=== PATIENT | female | born 1930 | race Caucasian/White ===

== ENCOUNTER 2016-05-02 10:50 | Observation (INO) ==
--- NOTE | 2016-05-02 11:23 | Emergency Department Note ---
Disposition Clinical Impression: New onset a-fib Lower extremity edema Qualifiers: Laterality: bilateral Qualified Code(s): R60.0 - Localized edema Disposition: Admitted As Inpatient Condition: Good Referrals: NO,PCP [Primary Care Provider] - Forms: ED Satisfaction Letter Time of Disposition: 14:08 Extremity Problem HPI - General Chief complaint: ED Extremity Problem,Nontraumatic Stated complaint: swelling legs, feet x3 Day Time Seen by Provider: 05/02/16 11:12 Source: patient Limitations: no limitations Nursing Notes Reviewed: Yes Vital Signs Reviewed: Yes - History of Present Illness HPI Narrative: Patient is an 86-year-old female with medical history of anemia, high blood pressure, GERD. She presents today due to bilateral lower extremity swelling that has been present since Monday. She denies any chest pain, shortness of breath, nausea, vomiting, fevers, abdominal pain. She denies any pain in her lower extremities, she is up walking. Denies any redness. She has never had this occur in the past. Denies any history of CHF. She currently does not have a primary care physician and only sees the cancer center occasionally for iron infusions for anemia. She denies any previous cardiac diagnoses. Pain Scale: 2 - Related Data Home Medications Medication Instructions Recorded Confirmed Simvastatin [Zocor] 10 mg PO HS 06/22/15 06/22/15 Previous Rx's Medication Instructions Recorded Omeprazole [Prilosec] 40 mg PO DAILY #30 cap 04/06/15 Ergocalciferol (VITAMIN D2) 50,000 unit PO QWEEK #8 capsule 08/07/15 [Vitamin D2 (50,000 UNIT)] Folic Acid 1 mg PO DAILY #30 tablet 08/07/15 Omeprazole [PriLOSEC] 40 mg PO DAILY #30 capsule. 08/07/15 Labetalol [Trandate] 100 mg PO DAILY #30 tablet 09/17/15 Simvastatin [Zocor] 10 mg PO HS #30 tablet 10/19/15 Losartan Potassium [Cozaar] 50 mg PO BID #60 tab 01/04/16 Ferrous Sulfate 325 mg PO BIDWM #60 tablet 02/12/16 Ergocalciferol (VITAMIN D2) 50,000 unit PO QWEEK #4 capsule 03/04/16 [Drisdol (50,000 Unit)] Amlodipine Besylate 10 mg PO DAILY #30 tablet 04/11/16 Allergies Allergy/AdvReac Type Severity Reaction Status Date / Time No Known Allergies Allergy Verified 06/18/15 15:30 Constitutional: Denies: fever, chills Cardiovascular: Denies: chest pain, palpitations, dyspnea on exertion, orthopnea Respiratory: Denies: cough, dyspnea, wheezes Gastrointestinal: Denies: abdominal pain, nausea, vomiting, diarrhea Genitourinary: Denies: urgency, dysuria, frequency Musculoskeletal: Reports: other (Lower extremity edema). Denies: back pain, neck pain Integumentary: Denies: rash Neurological: Denies: headache, weakness, numbness, paresthesias Psychiatric: Denies: anxiety, depression Past Medical History - Past Medical History Attestation: Yes The following information was validated with the patient. Source: patient Medical history: Reports: hypertension - Social History Smoking Status: Never smoker Smokeless Tobacco Status: No Alcohol use: Reports: none Drug use: Reports: none Physical Exam - General Limitations: no limitations General appearance: alert, in no apparent distress - Head Head exam: atraumatic, normocephalic, normal inspection - Eye Eye exam: Present: normal appearance, PERRL, EOMI - ENT ENT exam: normal exam, normal oropharynx, mucous membranes moist - Neck Neck exam: Present: normal inspection, full ROM, trachea midline - Chest Chest inspection: Present: normal inspection, symmetric chest wall rise - Respiratory Respiratory exam: Present: normal lung sounds bilaterally - Cardiovascular Cardiovascular exam: Present: regular rate, irregular rhythm, normal heart sounds - Abdominal Exam Abdominal exam: Present: soft, Non-Tender. Absent: tenderness, distention, guarding, rebound, rigidity - Extremities Exam Extremities exam: Present: full ROM, normal capillary refill, pedal edema ( Bilateral lower extremity pedal edema, pitting; +2/4 bilateral posterior tibial pulses. ). Absent: tenderness - Neurological Exam Neurological exam: Present: alert, oriented X3 - Psychiatric Psychiatric exam: Present: normal affect, normal mood - Skin Skin exam: Present: warm, dry, intact, normal color Course Course Narrative: Vitals within normal limits. Patient is in atrial fibrillation. Denies any history of A. fib. Bilateral lower extremity pedal edema, pitting; +2/4 bilateral posterior tibial pulses. Otherwise, the rest of the physical exam was benign. We will perform cardiac workup, troponin, chest x-ray, EKG, albumin. EKG shows A. fib, rate controlled, no acute ST elevation or depression. 14:07 patient has an elevated troponin 0.05. She was given aspirin. Due to new onset A. fib, lower extremity edema, will admit patient for further workup. Patient currently is symptomatically no chest pain and no shortness of breath. Vital Signs Temperature 97.8 F 05/02/16 10:57 Pulse Rate 98 05/02/16 10:57 Respiratory Rate 16 05/02/16 10:57 Blood Pressure 129/52 05/02/16 10:57 O2 Sat by Pulse Oximetry 99 05/02/16 10:57 Temperature 97.8 F 05/02/16 10:57 Pulse Rate 81 05/02/16 13:21 Respiratory Rate 18 05/02/16 13:21 Blood Pressure 106/54 05/02/16 13:21 O2 Sat by Pulse Oximetry 96 05/02/16 13:21 Oxygen Delivery Oxygen Delivery Room Air Extremity Problem, Nontraumati - MDM Narrative Medical decision making narrative: I examined this patient and my medical decision-making was reviewed with the RACK CARRIER/PA/Advanced Practice Nurse/Resident Physician. I agree with the documented findings, disposition and treatment plan as described except to the extent set forth below. This patient with Dr. Pringle, I agree with his evaluation and management plan, I supervised the care of the patient throughout their stay today. Patient presents today with edema in her lower extremities are not last couple days. Assessment painful. She has never had COPD before never had any edema. She is 1+ edema on the dorsum of her feet or ankles. No edema in her thighs. Her lungs are clear. Send anemia in the past. She required transfusion she says that was over 6 months ago. She otherwise she feels fine. Jamey a brief workup on her and then reassess. She is in agreement with this plan. Vitals within normal limits. Patient is in atrial fibrillation. Denies any history of A. fib. Bilateral lower extremity pedal edema, pitting; +2/4 bilateral posterior tibial pulses. Otherwise, the rest of the physical exam was benign. We will perform cardiac workup, troponin, chest x-ray, EKG, albumin. EKG shows A. fib, rate controlled, no acute ST elevation or depression. 14:07 patient has an elevated troponin 0.05. She was given aspirin. Due to new onset A. fib, lower extremity edema, will admit patient for further workup. Patient currently is symptomatically no chest pain and no shortness of breath. Chest X-Ray 05/02/16 11:16 IMPRESSION: No evidence of acute disease. D/ / Ochoa Goss MD / Ochoa Goss MD Interpreting Provider: Ochoa Goss MD 1313 hrs.: Lab called inch patient has an elevated troponin 0.05. Patient's had no chest pain. She does not appear to be in heart failure on her chest x- ray. She has had the peripheral edema with an uncertain cause. Regarding her and bring her into the hospital. - Medical Records Medical records reviewed: Yes I reviewed the patient's medical records. - Lab Data Lab results reviewed: Yes I reviewed the patient's lab results. Result diagrams: 05/02/16 12:40 05/02/16 12:40 Lab Results 05/02/16 05/02/16 05/02/16 Range/Units 12:40 12:40 12:40 WBC 11.4 H (4.3-11.1) K/mcL RBC 3.16 L (3.82-4.97) M/mcL Hgb 9.8 L (11.5-15.4) g/dL Hct 30.3 L (35.3-44.9) % MCV 95.9 (83.0-100.0) fL MCH 31.0 (28.0-33.3) pg MCHC 32.3 (31.6-35.5) g/dL RDW 13.1 (11.5-14.5) % Plt Count 254 (140-400) K/mcL MPV 9.6 (9.4-12.4) fL Immature Gran % 0.5 (0-4) % Seg Neutrophils % 87.1 % Lymphocytes % 6.9 % Monocytes % 4.7 % Eosinophils % 0.5 % Basophils % 0.3 % Neutrophils # 10.0 H (1.6-8.9) K/mcL Lymphocytes # 0.8 (0.6-4.6) K/mcL Monocytes # 0.5 (0.0-1.3) K/mcL Eosinophils # 0.1 (0.0-0.6) K/mcL Basophils # 0.0 (0.0-0.2) K/mcL Sodium 141 (136-145) mEq/L Potassium 3.3 L (3.5-4.5) mEq/L Chloride 111 H (98-109) mEq/L Carbon Dioxide 22 (19-29) mEq/L BUN 26 H (7-20) mg/dL Creatinine 0.77 (0.57-1.11) mg/dL Est GFR ( Amer) > 60 (> 60) Est GFR (Non-Af Amer) > 60 (> 60) BUN/Creatinine Ratio 34 H (6-26) Glucose 94 (70-99) mg/dL Calculated Osmolality 297 (280-300) Calcium 7.6 L (8.6-10.8) mg/dL Troponin I 0.05 H* (0-0.03) ng/mL Albumin 1.6 L (3.5-5.0) g/dL - Radiology Data Radiology results reviewed: Yes I reviewed the patient's radiology results. Chest X-Ray 05/02/16 11:16 IMPRESSION: No evidence of acute disease. D/ / Ochoa Goss MD / Ochoa Goss MD Interpreting Provider: Ochoa Goss MD - EKG Data EKG attestation: Yes I reviewed and interpreted this EKG. EKG results narrative: May 0208/2016 11:16. A. fib. Rate 96. QTC 383. QRS 89. No acute ST elevation or depression. Previous EKG from 04/10/2012 shows normal sinus rhythm. Gus - Gus Situation: Demographics, MOA Background: Presenting Complaint, Relevant PMH, Meds, & Allergies Assessment: Course and respsone to treatment, Exam Concerns, Patient/Family Expectation, Pertinant Lab Results, Outstanding Labs S.B.ASarah Report Given to: Shon Weber Repor Time: 14:07
[2016-05-02 12:49] LABS: Basophils % 0.3 %; Eosinophils # 0.1 K/mcL (0.0-0.6); Eosinophils % 0.5 %; Hematocrit 30.3 % (35.3-44.9); Hemoglobin 9.8 g/dL (11.5-15.4); Immature Granulocytes % 0.5 % (0-4); Lymphocytes # 0.8 K/mcL (0.6-4.6); Lymphocytes % 6.9 %; Mean Corpuscular HGB Conc 32.3 g/dL (31.6-35.5); Mean Corpuscular Volume 95.9 fL (83.0-100.0); Mean Platelet Volume 9.6 fL (9.4-12.4); Monocytes # 0.5 K/mcL (0.0-1.3); Monocytes % 4.7 %; Platelet Count 254 K/mcL (140-400); Red Blood Count 3.16 M/mcL (3.82-4.97); Red Cell Distribution Width 13.1 % (11.5-14.5); Segmented Neutrophils % 87.1 %
[2016-05-02 13:02] LABS: BUN/Creatinine Ratio 34 (6-26); Blood Urea Nitrogen 26 mg/dL (7-20); Calcium 7.6 mg/dL (8.6-10.8); Carbon Dioxide 22 mEq/L (19-29); Chloride 111 mEq/L (98-109); Glucose 94 mg/dL (70-99); Osmolality,Calculated 297 (280-300); Potassium 3.3 mEq/L (3.5-4.5); Sodium 141 mEq/L (136-145); eGFR For African Americans > 60 (> 60); eGFR For Non-African Americans > 60 (> 60)
[2016-05-02 13:04] LABS: Albumin 1.6 g/dL (3.5-5.0)
[2016-05-02] MEDS ORDERED: Aspirin 81 MG TAB.CHEW PO ONE (13:14)
[2016-05-02] MEDS ORDERED: Naloxone 0.4 MG/ML INJ IVP PRN (16:27)
[2016-05-02] MEDS ORDERED: MOM Conc 10 ML UD.LIQ PO PRN (16:27)
[2016-05-02] MEDS ORDERED: Ondansetron 4 MG/2 ML VIAL IVP PRN (16:27)
[2016-05-02] MEDS ORDERED: Acetaminophen 325 MG TABLET PO PRN (16:27)
[2016-05-02] MEDS ORDERED: Mag Hydrox/Al Hydrox/Simeth 30 ML UDC PO PRN (16:27)
[2016-05-02] MEDS ORDERED: *HR* HYDROcodone/Acet 5/325 mg TABLET PO PRN (16:27)
--- NOTE | 2016-05-02 16:41 | Internal Med History&Physical ---
<Marina Gamboa - Last Filed: 05/02/16 18:01> Date of Encounter: 05/02/16 Time of Encounter: 16:00 Assessment and Plan (1) Lower extremity edema Current visit: Yes Status: Acute Pt has 2 month history of BLE edema, worse for the last 3 days when she started having difficulty walking. She denies any SOB, chest pain, palpitations, dizziness, or cough. Pt has no cardiac or renal history. Lungs are clear ant and post. Her albumin is significantly low at 1.6. BNP ordered Telemetry Echo urine pr/cr ratio LFT fluid restriction 1.5 L/day Qualifiers: Laterality: bilateral Qualified Code(s): R60.0 - Localized edema (2) Elevated troponin Current visit: Yes Status: Acute no chest pain. no shortness of breath. follow up serial troponins. ekg unremarkable. check echocardiogram. (3) Hypoalbuminemia Current visit: Yes Status: Acute Albumin 1.6 today. This certainly could be causing her peripheral edema, so we will repeat liver panel in the morning. Pt states that she eats well at home and cooks for herself, does not skip meals. (4) HTN (hypertension) Current visit: Yes Status: Chronic Blood pressure here today has been WNL, 129/52 during exam. Will monitor vital signs and continue home dose of losartan and decrease dose of labetalol. holding amlodipine. Qualifiers: Hypertension type: essential hypertension Qualified Code(s): I10 - Essential (primary) hypertension (5) Iron deficiency anemia Current visit: Yes Status: Chronic Hgb 9.8mg/dl today. Continue FeS04 home dose. CBC in a.m. Last iron studies done in late 2014, ordered for a.m. Monitor labs. Qualifiers: Iron deficiency anemia type: unspecified iron deficiency Qualified Code(s) : D50.9 - Iron deficiency anemia, unspecified Internal Medicine - H&P: HPI Chief complaint: BLE edema Admitted From: Home Plans for Post Hospital Care: Home History of present illness: Ms. Mederos is a 86 year old female who presents with history of GERD, CARLA, and HTN. Pt does not have a PCP and until the last few years, did not see one at all. She comes today for worsening pedal edema. She and her friends are not sure when it started, but possibly early February, and it became worse 3 days ago and she was having difficulty walking. She denies leg pain, chest pain, SOB , cough, n/v/d, palpitations, or HARDING. Today her troponin is 0.05ng/dl in the ED. Her EKG shows sinus arrhythmia. She does have a murmur, 2/6 heard at the left upper and lower sternal border. She has +3 pitting pedal edema to BLE. Lungs are clear ant and post. Past Med Surg Social Fam HX - Past Medical History Medical history: hypertension - Social History Smoking Status: Never smoker Smokeless Tobacco Status: No Alcohol use: none Drug use: none Internal Medicine - H&P: Meds Simvastatin [Zocor] 10 mg PO HS 06/22/15 [History] Folic Acid 1 mg PO DAILY #30 tablet 08/07/15 [Rx] Omeprazole [PriLOSEC] 40 mg PO DAILY #30 capsule. 08/07/15 [Rx] Losartan Potassium [Cozaar] 50 mg PO BID #60 tab 01/04/16 [Rx] Ferrous Sulfate 325 mg PO BIDWM #60 tablet 02/12/16 [Rx] Amlodipine Besylate 5 mg PO DAILY 05/02/16 [History] Cyanocobalamin (Vitamin B-12) [Vitamin B12] 1,000 mcg PO DAILY 05/02/16 [History ] Ergocalciferol (VITAMIN D2) [Vitamin D2 (50,000 UNIT)] 50,000 unit PO SA [History] Labetalol [Trandate] 100 mg PO BID 05/02/16 [History] Vitamin B Complex [B Complex] 1 tab PO DAILY 05/02/16 [History] Vitamin E 1,000 unit PO DAILY 05/02/16 [History] Allergies No Known Allergies Allergy (Verified 06/18/15 15:30) All Systems PM: A 10-system review of systems was performed and is negative for pertinent findings except as documented above in the HPI. - Constitutional Constitutional: no chills, no fatigue, no falls, no lethargy, no weakness - Cardiovascular Cardiovascular ROS IM: edema, no chest pain, no diaphoresis, no dyspnea, no dyspnea on exertion, no irregular heart rhythm, no lightheadedness, no palpitations, no paroxysmal nocturnal dyspnea, no syncope - Respiratory Respiratory: no cough, no wheezing, no pain on inspiration, no chest congestion - Gastrointestinal Gastrointestinal: no diarrhea, no heartburn, no nausea, no vomiting - Genitourinary Genitourinary: no dysuria, no urinary frequency, no urinary urgency - Musculoskeletal Musculoskeletal ROS IM: no muscle weakness - Constitutional Vitals: Temp Pulse Resp BP Pulse Ox 97.8 F 81 18 106/54 96 05/02/16 10:57 05/02/16 13:21 05/02/16 13:21 05/02/16 13:21 05/02/16 13:21 General appearance: Present: cooperative, A&O X 3, pleasant, no acute distress, answers questions appropriately - Eye Eye exam: Present: conjuntiva pink - ENT ENT exam: Present: mucous membranes moist - Neck Neck exam general surgery: Absent: lymphadenopathy, tenderness - Respiratory Respiratory exam: Present: CTAB. Absent: accessory muscle use, chest wall tenderness, decreased breath sounds, rales, respiratory distress, wheezes - Cardiovascular Cardiovascular exam: Present: irregular rhythm, +S1, +S2 - Expanded Cardiovascular Exam Location: Present: LUSB Intensity: 2/6 - GI/Abdominal GI/Abdominal exam: Present: normal bowel sounds, soft. Absent: tenderness - Extremities Exam Extremities exam: Present: pedal edema, warm, radial pulses palpable and symetrical. Absent: tenderness Additional comments: Pt with +3 pitting edema to BLE, mid tibia to toes. Pedal or post tibial pulses not palpable. - Neurological Exam Neurological exam: Present: alert, oriented X3, no focal deficits. Absent: facial droop, speech deficit Internal Med - H&P Results - Labs CBC & Chem 7: 05/02/16 12:40 05/02/16 12:40 - EKG Data Prior EKG available for review: yes When compared to previous EKG: there are significant changes Interpretation IM: other EKG comments: 05/02/16 16:55 EKG shows sinus arrhythmia. Tracy 93, GA int 123, QRS 93, QT 363, QTc 413 05/02/16 17:23 <Sheila Reinoso - Last Filed: 05/02/16 18:46> Date of Encounter: 05/02/16 Internal Medicine - H&P: HPI History of present illness: Ms. Mederos is a 86 year old female All Systems PM: A 10-system review of systems was performed and is negative for pertinent findings except as documented above in the HPI. - Constitutional Vitals: Temp Pulse Resp BP Pulse Ox 97.5 F L 112 16 145/76 96 05/02/16 18:05 05/02/16 18:05 05/02/16 18:05 05/02/16 18:05 05/02/16 18:05 Internal Med - H&P Results - Labs CBC & Chem 7: 05/02/16 12:40 05/02/16 12:40 - Attending Attestation I examined, reviewed all imaging, laboratory and diagnostic data. I agree with the documented findings, treatment, disposition of ANALI Marina Gamboa as described below. 86-year-old female with past medical history of hypertension and GERD who has not seen a doctor for many years. She comes because of worsening lower extremity edema for at least 2 months that has led her to have difficulty in walking. no falls. albumin 1.6. Exam reveals extremity edema up to the knees. Patient denies any shortness of breath, chest pain, chest x-ray negative. LE edema could be secondary to severe hypoalbuminemia. check urine Creatinine protein ratio, LFTs, echocardiogram. consult PT/OT.
--- NOTE | 2016-05-02 16:46 | Electrocardiograph Report ---
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
[2016-05-03 00:53] LABS: Basophils % 0.3 %; Eosinophils # 0.2 K/mcL (0.0-0.6); Eosinophils % 1.4 %; Hematocrit 25.9 % (35.3-44.9); Hemoglobin 8.4 g/dL (11.5-15.4); Immature Granulocytes % 0.5 % (0-4); Lymphocytes # 1.3 K/mcL (0.6-4.6); Lymphocytes % 11.1 %; Mean Corpuscular HGB Conc 32.4 g/dL (31.6-35.5); Mean Corpuscular Hemoglobin 31.1 pg (28.0-33.3); Mean Corpuscular Volume 95.9 fL (83.0-100.0); Monocytes # 0.7 K/mcL (0.0-1.3); Monocytes % 6.1 %; Neutrophils # 9.7 K/mcL (1.6-8.9); Platelet Count 244 K/mcL (140-400); Red Cell Distribution Width 13.2 % (11.5-14.5); Segmented Neutrophils % 80.6 %
[2016-05-03 01:01] LABS: INR 1.2; Prothrombin Time 13.1 Seconds (9.4-12.1)
[2016-05-03 01:11] LABS: Albumin/Globulin Ratio 0.6 (1.1-2.2); Bilirubin,Direct 0.2 mg/dL (0.0-0.5); Bilirubin,Indirect 0.3 mg/dL (0.0-1.2); Bilirubin,Total 0.5 mg/dL (0.2-1.2); Globulin 2.5 g/dL (2.4-3.5)
[2016-05-03 01:12] LABS: % Iron Saturation 39 % (15-50); Albumin 1.5 g/dL (3.5-5.0); Iron 27 mcg/dL (50-170); Transferrin 49 mg/dL (180-382)
[2016-05-03] MEDS ORDERED: amLODIPine 5 MG TABLET PO SCH (09:00)
[2016-05-03] MEDS: Cyanocobalamin (B-12) 1,000 MCG TABLET PO SCH (09:32)
[2016-05-03] MEDS: Folic Acid 1 MG TABLET PO SCH (09:32)
--- NOTE | 2016-05-03 11:31 | ECHO - Doppler Report ---
Echocardiogram Name: Betina Mederos Date of Study: 05/03/2016 Date: 1930 Ht: 66.0 in Medical Record#: [id number] Age: 86 Wt: 140.0 lb Gender: Female BSA: 1.72 Order #: [id number] Location: [facility] IP Room #: 2A43 Reading Physician: Alisha Her DO Environmental Program Manager: Victorino Viramontes RN Ordering Physician: Sheila Reinoso MD Primary Physician: None Indications: Murmur Impressions: LVEF 60-65%. Normal left ventricular size and systolic function. Indeterminate diastolic function. Normal right ventricular size and function. Visually, degree of aortic stenosis appears severe. By Doppler, there is moderate to severe aortic stenosis. Mild mitral regurgitation. Mild tricuspid regurgitation. Mild pulmonary hypertension. Left Ventricular Wall Motion: Rest Echo Findings All wall segments showed normal motion. Findings: Study Quality * Technically adequate exam. ECG Findings * Unclear underlying rhythm. Possibly sinus with arrhythmia. Left Ventricle * Indeterminate diastolic function. * LVEF 60-65%. * Normal LV chamber size, wall thickness and function. Mitral Valve * Normal mitral valve structure. * No mitral stenosis. * Mild mitral annular calcification * Mild mitral regurgitation. Tricuspid Valve * Mild tricuspid regurgitation. * Normal tricuspid valve structure. * Estimated RA pressure is 3 mmHg. * Estimated RVSP is 44 mmHg. * Mild pulmonary hypertension. Pulmonic Valve * Pulmonic valve is not well visualized. * No pulmonic stenosis. * Trace pulmonic regurgitation. Pulmonary Artery * Pulmonary artery not well visualized. Aortic Valve * Aortic valve not well visualized. * No aortic regurgitation. * Moderate-severe aortic stenosis. PV 3.2m/s, MG 25 mmHg, DI 0.32, LA 1.0cm2 Right Ventricle * Normal right ventricular structure and function. Right Atrium * Normal right atrial size. Left Atrium * Mildly dilated left atrium. Interatrial Septum * No evidence of PFO by color Doppler. IVC * Normal IVC dimensions and inspiratory collapse. Pericardium * There is no pericardial effusion present. Aorta * Normally sized aortic root. History Hypertension Hypercholesteremia Family History of CAD Valvular Disease 04/11/2012 a Previous Echo was performed. Measurements: BP: 128/ 65 2D Normal Values RVIDd: 3.00 cm <2.7 cm IVSd: 1.20 cm 0.6 - 1.0 cm LVIDd: 4.00 cm 3.7 - 5.6 cm LVPWd: 1.20 cm 0.6 - 1.1 cm LVIDs: 2.90 cm 1.5 - 3.6 cm LA: 3.40 cm 2.0 - 4.0cm %FS: 27.50 cm >25 % LVOT Diam: 2.00 cm LA volume: 51 Mitral Valve Peak E:1.18 m/sec Peak E' Lat Aneesh:8.19 cm/s Peak E' Med Aneesh:7.7 cm/s E/E' Lat Ratio:14.4 E/E' Med Ratio:15.3 LVOT Peak Aneesh:1.12 m/sec Mean Aneesh:.69 m/sec Peak Grad:5.00 mmHg Mean Grad:2.00 mmHg Aortic Valve Peak Aneesh:3.80 m/sec Mean Aneesh:2.66 m/sec Peak Grad:58.00 mmHg Mean Grad:32.00 mmHg Valve Area:.91 cm2 Tricuspid Valve TV Regurg Peak Grad: 41.00mmHg TV Regurg Peak Aneesh: 3.20m/sec Updated by Alisha Her on 05/03/2016 11:16:36 AM electronically signed on 05/03/2016 11:25:23 AM with status of Final Wall Motion Reyez: 1=Normal, 2=Hypokinesis, 3=Akinesis, 4=Dyskinesis, 5=Aneurysmal, 6=Hyperkinetic, X=Not Visualized (Blank)=Missing
--- NOTE | 2016-05-03 14:46 | Cardiology Consult Note ---
Date of Encounter: 05/03/16 Time of Encounter: 14:44 Assessment and Plan (1) Elevated troponin Current Visit: Yes Status: Acute - adynamic troponin peak 0.05 - patient is asymptomatic, denies chest pain, shortness of breath, lightheadedness, syncope - EKG is sinus rhythm, shows wandering pacemaker with different p waves which are present, this is not atrial fibrillation - ECHO 05/03/16 - reveals EF 60-65% with normal systolic function, indeterminate diastolic dysfunction, SEVERE aortic visually but moderate to severe on doppler, mild MR, mild TR, and mild pulm hypertension (2) Severe calcific aortic stenosis Current Visit: Yes Status: Acute - patient is DNRCC - denies any complaints of chest pain, shortness of breath, or syncope - systolic murmur - ECHO 05/03/16 - reveals EF 60-65% with normal systolic function, indeterminate diastolic dysfunction, SEVERE aortic visually but moderate to severe on doppler, mild MR, mild TR, and mild pulm hypertension - known calcified aortic stenosis on prior echocardiogram since 2012 - consideration for possible TAVR, however, after discussion with patient she appeared to be adamant against any surgery - if she were to change her mind heart catheterization would need to be performed - otherwise nothing emergent needs done, possible outpatient management and likely follow up in clinic (3) Lower extremity edema Current Visit: Yes Status: Acute - history of 2 month lower extremity edema, worse past several days - BNP 182 - strict I&Os, fluid restriction, and possible diuresis - denies history of blood clots or smoking, likely not DVT Qualifiers: Laterality: bilateral Qualified Code(s): R60.0 - Localized edema Discussion w patient/family: The assessment and plan as outlined above was discussed with the patient and/or family members who expressed understanding and agreement. All questions were answered. Thank you for involving us in the care of your patient. Please call with any questions. History of Present Illness Consult date: 05/03/16 Requesting physician: Ange Castellanos Consult reason: mod-severe aortic stenosis Chief complaint: peripheral edema History of present illness: Ms. Mederos is a 86 year old female with history of HTN and known aortic stenosis presents to the ED for leg swelling. Cardiology consulted for severe aortic stenosis on recent echocardiogram. Complains of leg swelling worse over the past several days, first noticed 2 months ago. Denies chest pain, shortness of breath, lightheadedness, syncope, headache, or cough. Denies any history of cardiac ischemic disease or arrhythmia. Only concern for peripheral edema. No history of lung disease. Denies history of blood clots, recent surgeries, or long distance travel. Important CV studies: - ECHO 05/03/16 - EF 60-65% with normal systolic function, indeterminate diastolic dysfunction, SEVERE aortic visually but moderate to severe on doppler, mild MR, mild TR, and mild pulm hypertension - last ECHO 04/12/12 - EF 60% with mild diastolic dysfunction and moderate aortic stenosis with moderately calcified aortic valve with Vmax 2.9 m/s and gradient 20 mmHg Past Med Surg Social Fam HX - Past Medical History Medical history: hypertension - Past Surgical History Surgical History: hysterectomy - Social History Smoking Status: Never smoker Smokeless Tobacco Status: No Alcohol use: none Drug use: none Medications and Allergies Simvastatin [Zocor] 10 mg PO HS 06/22/15 [History] Folic Acid 1 mg PO DAILY #30 tablet 08/07/15 [Rx] Omeprazole [PriLOSEC] 40 mg PO DAILY #30 capsule. 08/07/15 [Rx] Losartan Potassium [Cozaar] 50 mg PO BID #60 tab 01/04/16 [Rx] Ferrous Sulfate 325 mg PO BIDWM #60 tablet 02/12/16 [Rx] Amlodipine Besylate 5 mg PO DAILY 05/02/16 [History] Cyanocobalamin (Vitamin B-12) [Vitamin B12] 1,000 mcg PO DAILY 05/02/16 [History ] Ergocalciferol (VITAMIN D2) [Vitamin D2 (50,000 UNIT)] 50,000 unit PO SA [History] Labetalol [Trandate] 100 mg PO BID 05/02/16 [History] Vitamin B Complex [B Complex] 1 tab PO DAILY 05/02/16 [History] Vitamin E 1,000 unit PO DAILY 05/02/16 [History] Allergies No Known Allergies Allergy (Verified 06/18/15 15:30) All Systems Review: A 10-system review of systems was performed and is negative for pertinent findings except as documented above in the HPI. - Constitutional Constitutional: no fever(s), no frequent falls, no weakness - Cardiovascular Cardiovascular: as per HPI, leg edema, no chest pain at rest, no chest pain with exertion, no dyspnea at rest, no dyspnea on exertion, no irregular heart rhythm, no lightheadedness, no orthopnea, no palpitations, no syncope - Respiratory Respiratory: no cough, no dyspnea - Musculoskeletal Musculoskeletal: no abnormal gait, no back pain - Neurological Neurological: no dizziness, no focal weakness, no syncope Physical Examination Vital Signs, Last 4 Hours Temp Pulse Resp BP Pulse Ox 05/03/16 11:50 109 16 109/63 94 L 05/03/16 11:29 97.3 F L 109 16 109/63 94 L General: Conversant, No Apparent Distress HEENT: Atraumatic, Normocephaly, Mucus Membranes Moist Neck: No JVD, Normal carotid pulses Cardiac: Reg Rate and Rhythm, Normal S1 and S2, Other (systolic crescendo murmur ) Lungs: Normal Breath Sounds, No Wheeze, Rales, Rhonchi Neuro: Alert and responsive, No focal deficits noted Abdomen: Soft, Non-Tender Skin: No rashes noted on visualized skin Musculoskeletal: No Chest Wall Tenderness Extremities: No Clubbing, No Cyanosis, Normal Pulses, Other (+1 bilateral pitting edema) Results 05/03/16 00:19 05/02/16 12:40 Lab Results 05/02/16 05/02/16 05/03/16 18:25 18:25 00:19 WBC Hgb Hct Plt Count INR 1.2 Total Bilirubin AST ALT Alkaline Phosphatase Troponin I 0.03 B-Natriuretic Peptide 182 H 05/03/16 05/03/16 05/03/16 00:19 00:19 00:19 WBC 12.0 H Hgb 8.4 L Hct 25.9 L Plt Count 244 INR Total Bilirubin 0.5 AST 13 ALT 17 Alkaline Phosphatase 132 H Troponin I 0.04 H* B-Natriuretic Peptide - Imaging and Cardiology Echo: report reviewed - EKG Interpretation EKG results cardiology: personally reviewed, sinus rhythm Consult Discharge Plan - Plan Referrals: NO,PCP [Primary Care Provider] -
--- NOTE | 2016-05-03 15:17 | Electrocardiograph Report ---
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
--- NOTE | 2016-05-03 17:09 | Internal Med Progress Note ---
Date of Encounter: 05/03/16 Time of Encounter: 17:07 - Assessment and plan (1) Elevated troponin Current Visit: Yes Status: Acute Assessment and plan: as per cardiology, adynamic troponin peak 0.05 - patient is asymptomatic, denies chest pain, shortness of breath, lightheadedness, syncope - EKG is sinus rhythm, shows wandering pacemaker with different p waves which are present, this is not atrial fibrillation - ECHO 05/03/16 - reveals EF 60-65% with normal systolic function, indeterminate diastolic dysfunction, SEVERE aortic visually but moderate to severe on doppler, mild MR, mild TR, and mild pulm hypertension no further intervention. (2) Severe calcific aortic stenosis Current Visit: Yes Status: Acute Assessment and plan: - denies any complaints of chest pain, shortness of breath, or syncope - systolic murmur - ECHO 05/03/16 - reveals EF 60-65% with normal systolic function, indeterminate diastolic dysfunction, SEVERE aortic visually but moderate to severe on doppler, mild MR, mild TR, and mild pulm hypertension - known calcified aortic stenosis on prior echocardiogram since 2012 - consideration for possible TAVR, however, after discussion with patient she appeared to be adamant against any surgery As per cardiology, if she were to change her mind heart catheterization would need to be performed - otherwise nothing emergent needs done, possible outpatient management and likely follow up in clinic she says her lower leg swelling has improved, she received no lasix, amlod has been held. will continue to monitor (3) HTN (hypertension) Current Visit: Yes Status: Chronic Assessment and plan: BP stable , will continue her home meds Qualifiers: Hypertension type: essential hypertension Qualified Code(s): I10 - Essential (primary) hypertension (4) Iron deficiency anemia Current Visit: Yes Status: Chronic Assessment and plan: she has baseline CARLA. she was seen by hematology and has received iron transfusions in the past and currently takes oral iron. her Hb is at baselline she denies any hematemesis or sedrick will contineu bhaskar iron supplements repeat iron panel shows Tsat of 39, whereas iron level is still low. Qualifiers: Iron deficiency anemia type: unspecified iron deficiency Qualified Code(s) : D50.9 - Iron deficiency anemia, unspecified - Subjective Interval history: seen at the bedside, denies any complaints. reports that she came in for leg swelling and has mild HARDING. denies any chest pain or cough. - Constitutional Vitals: Temp Pulse Resp BP Pulse Ox 98 F 106 16 127/70 93 L 05/03/16 16:11 05/03/16 16:11 05/03/16 16:11 05/03/16 16:11 05/03/16 16:11 General appearance: Present: cooperative, A&O X 3, pleasant, no acute distress, answers questions appropriately Exam: General: Conversant, No Apparent Distress HEENT: Atraumatic, Normocephaly, Mucus Membranes Moist Neck: No JVD, Normal carotid pulses Cardiac: Reg Rate and Rhythm, Normal S1 and S2, Other (systolic crescendo murmur ) Lungs: Normal Breath Sounds, No Wheeze, Rales, Rhonchi Neuro: Alert and responsive, No focal deficits noted Abdomen: Soft, Non-Tender Skin: No rashes noted on visualized skin Musculoskeletal: No Chest Wall Tenderness Extremities: No Clubbing, No Cyanosis, Normal Pulses, Other (+1 bilateral pitting edema) Internal Medicine: Result - Labs CBC & Chem 7: 05/03/16 00:19 05/02/16 12:40 Labs: Short CBC 05/03/16 Range/Units 00:19 WBC 12.0 H (4.3-11.1) K/mcL Hgb 8.4 L (11.5-15.4) g/dL Hct 25.9 L (35.3-44.9) % Plt Count 244 (140-400) K/mcL Neutrophils # 9.7 H (1.6-8.9) K/mcL Cardiac Enzymes 05/02/16 05/03/16 Range/Units 18:25 00:19 Troponin I 0.03 0.04 H* (0-0.03) ng/mL Liver Function 05/03/16 Range/Units 00:19 Total Bilirubin 0.5 (0.2-1.2) mg/dL Direct Bilirubin 0.2 (0.0-0.5) mg/dL AST 13 (5-34) Units/L ALT 17 (0-55) Units/L Alkaline Phosphatase 132 H (38-126) Units/L Albumin 1.5 L (3.5-5.0) g/dL - ABG Interpretation ABG results: PT/INR, D-dimer PT 13.1 Seconds (9.4-12.1) H 05/03/16 00:19 Consult Discharge Plan - Plan Referrals: NO,PCP [Primary Care Provider] -
[2016-05-04 05:23] LABS: Basophils % 0.2 %; Eosinophils # 0.1 K/mcL (0.0-0.6); Eosinophils % 1.3 %; Hematocrit 26.7 % (35.3-44.9); Hemoglobin 8.5 g/dL (11.5-15.4); Immature Granulocytes % 0.6 % (0-4); Lymphocytes # 1.3 K/mcL (0.6-4.6); Mean Corpuscular HGB Conc 31.8 g/dL (31.6-35.5); Mean Corpuscular Hemoglobin 30.4 pg (28.0-33.3); Mean Corpuscular Volume 95.4 fL (83.0-100.0); Mean Platelet Volume 9.9 fL (9.4-12.4); Monocytes # 0.6 K/mcL (0.0-1.3); Neutrophils # 7.9 K/mcL (1.6-8.9); Platelet Count 259 K/mcL (140-400); Red Cell Distribution Width 13.2 % (11.5-14.5); Segmented Neutrophils % 78.9 %
[2016-05-04 05:35] LABS: BUN/Creatinine Ratio 40 (6-26); Blood Urea Nitrogen 27 mg/dL (7-20); Calcium 7.4 mg/dL (8.6-10.8); Carbon Dioxide 21 mEq/L (19-29); Chloride 114 mEq/L (98-109); Glucose 91 mg/dL (70-99); Osmolality,Calculated 299 (280-300); Potassium 3.3 mEq/L (3.5-4.5); Sodium 142 mEq/L (136-145); eGFR For African Americans > 60 (> 60); eGFR For Non-African Americans > 60 (> 60)
[2016-05-04] MEDS ORDERED: Calcium Gluconate 1,000 MG in D5% in Water 100 ML IVPB ONE (08:45)
[2016-05-04] MEDS: Cyanocobalamin (B-12) 1,000 MCG TABLET PO SCH (08:52)
[2016-05-04] MEDS: Folic Acid 1 MG TABLET PO SCH (08:53)
--- NOTE | 2016-05-04 09:27 | Cardiology Progress Note ---
Date of Encounter: 05/04/16 Time of Encounter: 09:27 Assessment and Plan (1) Severe calcific aortic stenosis Current Visit: Yes Status: Acute - patient is DNRCC - systolic murmur - ECHO 05/03/16 - reveals EF 60-65% with normal systolic function, indeterminate diastolic dysfunction, SEVERE aortic visually but moderate to severe on doppler, mild MR, mild TR, and mild pulm hypertension - known calcified aortic stenosis on prior echocardiogram since 2012 - consideration for possible TAVR, however, after discussion with patient she does not wish to pursue at this time - patient remains asymptomatic even on exertion - will follow up in our cardiology clinic in a few weeks, appointment scheduled Cardiology will sign off at this time. Thank you for involving us in her care. Please call with further questions. (2) Elevated troponin Current Visit: Yes Status: Acute - adynamic troponin peak 0.05 - patient is asymptomatic, denies chest pain, shortness of breath, lightheadedness, syncope - EKG is sinus rhythm, shows wandering pacemaker with different p waves which are present, this is not atrial fibrillation - ECHO 05/03/16 - reveals EF 60-65% with normal systolic function, indeterminate diastolic dysfunction, SEVERE aortic visually but moderate to severe on doppler, mild MR, mild TR, and mild pulm hypertension (3) Lower extremity edema Current Visit: Yes Status: Acute - improving Qualifiers: Laterality: bilateral Qualified Code(s): R60.0 - Localized edema Discussion w patient/family: The assessment and plan as outlined above was discussed with the patient and/or family members who expressed understanding and agreement. All questions were answered. Thank you for involving us in the care of your patient. Please call with any questions. Subjective Principal diagnosis: leg edema Interval history: Patient seen and examined at bedside. No complaints at this time. Denies any chest pain, shortness of breath, lightheadedness, palpitations, or syncope. Edema improving. She has been up and walking with assistance, no issues. Readdressed options for possible valve replacement such as TAVR, she does not wish to pursue at this time. Objective Vital Signs, Last 4 Hours Temp Pulse Resp BP Pulse Ox 05/04/16 06:54 98.3 F 84 17 113/68 94 L General: Conversant, No Apparent Distress HEENT: Atraumatic, Normocephaly, Mucus Membranes Moist Neck: No JVD, Normal carotid pulses Cardiac: Reg Rate and Rhythm, Normal S1 and S2, Other (systolic crescendo murmur ) Lungs: Normal Breath Sounds, No Wheeze, Rales, Rhonchi Neuro: Alert and responsive, No focal deficits noted Abdomen: Soft, Non-Tender Skin: No rashes noted on visualized skin Musculoskeletal: No Chest Wall Tenderness Extremities: No Clubbing, No Cyanosis, Normal Pulses, Other (+1 bilateral pitting edema) Results 05/04/16 04:38 05/04/16 04:38 Lab Results 05/04/16 05/04/16 04:38 04:38 WBC 10.0 Hgb 8.5 L Hct 26.7 L Plt Count 259 Sodium 142 Potassium 3.3 L Chloride 114 H Carbon Dioxide 21 BUN 27 H Creatinine 0.68 Glucose 91 Calcium 7.4 L Consult Discharge Plan - Plan Referrals: NO,PCP [Primary Care Provider] -
--- NOTE | 2016-05-04 13:09 | Discharge Summary ---
Date of Encounter: 05/04/16 Time of Encounter: 13:06 - Discharge Diagnosis (1) Elevated troponin Priority: Primary Status: Acute (2) Severe calcific aortic stenosis Priority: Primary Status: Acute (3) HTN (hypertension) Priority: Primary Status: Chronic Qualifiers: Hypertension type: essential hypertension Qualified Code(s): I10 - Essential (primary) hypertension (4) Iron deficiency anemia Priority: Secondary Status: Chronic Qualifiers: Iron deficiency anemia type: unspecified iron deficiency Qualified Code(s) : D50.9 - Iron deficiency anemia, unspecified - Discharge Medications Home Medications: Simvastatin [Zocor] 10 mg PO HS 06/22/15 [History] Folic Acid 1 mg PO DAILY #30 tablet 08/07/15 [Rx] Omeprazole [PriLOSEC] 40 mg PO DAILY #30 capsule.dr 08/07/15 [Rx] Losartan Potassium [Cozaar] 50 mg PO BID #60 tab 01/04/16 [Rx] Ferrous Sulfate 325 mg PO BIDWM #60 tablet 02/12/16 [Rx] Cyanocobalamin (Vitamin B-12) [Vitamin B12] 1,000 mcg PO DAILY 05/02/16 [History ] Ergocalciferol (VITAMIN D2) [Vitamin D2 (50,000 UNIT)] 50,000 unit PO SA [History] Labetalol [Trandate] 100 mg PO BID 05/02/16 [History] Vitamin B Complex [B Complex] 1 tab PO DAILY 05/02/16 [History] Vitamin E 1,000 unit PO DAILY 05/02/16 [History] Allergies/Adverse Reactions: Allergies No Known Allergies Allergy (Verified 06/18/15 15:30) Date of admission: 05/02/16 16:25 Primary care physician: PCP NO Consults: 05/02/16 17:36 Consult to Occupational Therapy [CONS] Routine Comment: Evaluate, develop and implement POC Consult to Physical Therapy [CONS] Routine Comment: Evaluate, develop and implement POC 05/02/16 18:00 Consult to Nutrition [CONS] Routine Comment: Consulting Provider: NUTRITION Reason for Dietary Consult: MST Score Consult to Front Of House Manager [CONS] Routine Reason for SW Consult: possible ecf 05/03/16 12:19 Consult to Cardiology [CONS] Routine Comment: Consulting Provider: [facility] Reason for Consult: please evlauate for moderate to severe who presented with HARDING. thank you Call Completed: Yes Discharging clinician: Ange Castellanos Anticipated date of discharge: 05/04/16 - Patient Status Disposition: Home, Self-Care Condition: Fair Functional capacity at discharge: independent ambulation Overall status at discharge: patient is back to baseline - Discharge Instructions Instructions: Atrial Fibrillation (DC), Chronic Hypertension (DC), Anemia (GEN) Follow Up With: Alejandro Cole MD [Partnered Physician] - (Please call [facility] when you are ready to schedule your appointment. Thank you!) Alley Barr CUTTER TENDER [Advanced Practice Nurse] - 05/16/16 9:00 am (If you decide to cancel this appointment please call and cancel 24hrs in advance at . You will receive a nre patient packet in the mail to be filled out.) - Diet and Activity Activity: resume usual activities as tolerated Interval History: Ms. Mederos is a 86 year old female with history of HTN and known aortic stenosis presents to the ED for leg swelling. Cardiology consulted for severe aortic stenosis on recent echocardiogram. Complains of leg swelling worse over the past several days, first noticed 2 months ago. Denies chest pain, shortness of breath, lightheadedness, syncope, headache, or cough. Denies any history of cardiac ischemic disease or arrhythmia. Only concern for peripheral edema. No history of lung disease. Denies history of blood clots, recent surgeries, or long distance travel. Important CV studies: - ECHO 05/03/16 - EF 60-65% with normal systolic function, indeterminate diastolic dysfunction, SEVERE aortic visually but moderate to severe on doppler, mild MR, mild TR, and mild pulm hypertension - last ECHO 04/12/12 - EF 60% with mild diastolic dysfunction and moderate aortic stenosis with moderately calcified aortic valve with Vmax 2.9 m/s and gradient 20 mmHg Hospital course: cardiology was caonsulted for mod- severe on ECHO. patient is DNRCC - denies any complaints of chest pain, shortness of breath, or syncope - systolic murmur - ECHO 05/03/16 - reveals EF 60-65% with normal systolic function, indeterminate diastolic dysfunction, SEVERE aortic visually but moderate to severe on doppler, mild MR, mild TR, and mild pulm hypertension - known calcified aortic stenosis on prior echocardiogram since 2012 - consideration for possible TAVR, however, after discussion with patient she appeared to be adamant against any surgery adynamic troponin peak 0.05 - patient is asymptomatic, denies chest pain, shortness of breath, lightheadedness, syncope as per cardio she can follow for outpatient management and likely follow up in clinic. given her concern of generalized weakness , PT /OT was consulted , yaya it was recommended that she has no needs at this time and she is being dc in stable condition to home. she will be given referral to see cardio as OP for follow up. Time spent discussing smoking cessation with patient: more than 10 minutes - Time Spent with Patient Total time spent providing and/or coordinating discharge services: Greater than 30 minutes - Constitutional Vitals: Temp Pulse Resp BP Pulse Ox 98.1 F 83 16 122/63 98 05/04/16 11:30 05/04/16 11:30 05/04/16 11:30 05/04/16 11:30 05/04/16 11:30 General appearance: Present: cooperative, A&O X 3, pleasant, no acute distress, answers questions appropriately Exam: General: Conversant Cardiac: Other (irregularly irregular) Lungs: b/l clear, no added sounds Neuro: Alert and responsive Abdomen: Soft Skin: No rashes noted on visualized skin Musculoskeletal: No Chest Wall Tenderness Extremities: No Edema, Normal Pulses
[2016-05-04 15:52] VITALS: BP 136/66
== END 2016-05-04 17:26 | disposition home or self-care (01) ==
LOC: EMEROO 10:50 → 2ANU 10:50 → SUATTDRO 16:25 → 2ANU 17:26
PROVIDERS: ADMIT Internal Medicine; ATTEND Internal Medicine Endocrinology, Diabetes & Metabolism

== ENCOUNTER 2017-06-29 15:53 | Inpatient (IN) ==
[2017-06-29 16:58] LABS: Eosinophils % 0.5 %
[2017-06-29 17:00] LABS: Basophils % 0.3 %; Eosinophils # 0.1 K/mcL (0.0-0.6); Hematocrit 20.3 % (35.3-44.9); Immature Granulocytes % 0.5 % (0-4); Lymphocytes # 0.8 K/mcL (0.6-4.6); Lymphocytes % 7.3 %; Mean Corpuscular HGB Conc 28.6 g/dL (31.6-35.5); Mean Corpuscular Volume 87.5 fL (83.0-100.0); Mean Platelet Volume 10.3 fL (9.4-12.4); Monocytes # 0.7 K/mcL (0.0-1.3); Monocytes % 6.7 %; Neutrophils # 9.2 K/mcL (1.6-8.9); Platelet Count 374 K/mcL (140-400); Red Blood Count 2.32 M/mcL (3.82-4.97); Red Cell Distribution Width 18.7 % (11.5-14.5); Segmented Neutrophils % 84.7 %
--- NOTE | 2017-06-29 17:04 | Emergency Department Note ---
Disposition Clinical Impression: UTI (urinary tract infection), Severe anemia, Heme positive stool Disposition: Admitted As Inpatient Condition: Good Referrals: Italo Barrow MD [Family Provider] - Alley Barr CNP [Primary Care Provider] - Forms: ED Satisfaction Letter Time of Disposition: 18:09 SOB HPI - General Chief Complaint: ED Shortness of Breath/Dyspnea Stated Complaint: Low iron/sob Time Seen by Provider: 06/29/17 16:01 Source: patient, family Mode of arrival: ambulatory Limitations: no limitations - History of Present Illness Betina Mederos is an 87 year old female presenting with worsening SOB and weakness over the past 2 weeks. The SOB is exertional, coming on in as little a few steps. She notes some swelling in the left foot. She follows heme-onc for iron deficiency anemia and receives iron infusions as needed. She denies chest pain, diaphoresis, nausea, vomiting, fever, and chills. - Related Data Home Medications Medication Instructions Recorded Confirmed Cyanocobalamin (Vitamin B-12) 1,000 mcg PO DAILY 05/02/16 03/01/17 [Vitamin B12] Labetalol [Trandate] 50 mg PO BID 05/02/16 03/01/17 Vitamin B Complex [B Complex] 1 tab PO DAILY 05/02/16 03/01/17 Vitamin E 1,000 unit PO DAILY 05/02/16 03/01/17 Losartan Potassium [Cozaar] 50 mg PO DAILY 03/01/17 03/01/17 Omeprazole [PriLOSEC] 20 mg PO DAILY 03/01/17 03/01/17 Previous Rx's Medication Instructions Recorded Ferrous Sulfate 325 mg PO BIDWM #60 tablet 02/12/16 Simvastatin [Zocor] 10 mg PO HS #90 tablet 05/12/16 Folic Acid 1 mg PO DAILY #30 tablet 08/01/16 Allergies Allergy/AdvReac Type Severity Reaction Status Date / Time No Known Allergies Allergy Verified 06/29/17 16:00 Constitutional: Reports: weakness. Denies: fever, chills Cardiovascular: Reports: dyspnea on exertion. Denies: chest pain, palpitations , orthopnea Respiratory: Reports: dyspnea. Denies: cough Gastrointestinal: Denies: abdominal pain, nausea, vomiting, melena, hematochezia Neurological: Reports: weakness. Denies: headache Hematological/Lymphatic: Denies: easy bleeding Past Medical History - Past Medical History Medical history: Reports: hyperlipidemia, hypertension, other Surgical history: Reports: hysterectomy Psychiatric history: Reports: no psych history - Social History Smoking Status: Never smoker Smokeless Tobacco Status: No Alcohol use: Reports: none Drug use: Reports: none Physical Exam - General Limitations: no limitations General appearance: alert, in no apparent distress - Head Head exam: atraumatic, normocephalic - Respiratory Respiratory exam: Present: other (bibasilar crackles). Absent: respiratory distress, accessory muscle use - Cardiovascular Cardiovascular exam: Present: regular rate, normal rhythm, systolic murmur, +S1 , +S2 - Abdominal Exam Abdominal exam: Present: soft, Non-Tender - Rectal Exam [employer] present during exam: Yes Rectal exam: Present: heme (+) stool. Absent: black stool, bloody stool - Extremities Exam Extremities exam: Present: pedal edema (left foot only) - Neurological Exam Neurological exam: Present: alert, oriented X3 - Psychiatric Psychiatric exam: Present: normal affect, normal mood - Skin Skin exam: Present: warm, dry, other (4-5 cm diameter sebaceous lesion noted on the left upper arm) Course Course Narrative: Patient with history of iron deficiency anemia presents with worsening exertional SOB and weakness. Concern for CHF on initial exam with crackles and pedal edema. Cardiac work up initiated with CBC, BMP, BNP, troponin, EKG, and CXR. Additionally, TSH and UA ordered. EKG showed possible ischemic changes. TSH elevated to 5.884. BNP elevated at 944. Hemoglobin severely decreased to 5.8. Urinalysis positive for nitrites and leukocyte esterase. Chest x-ray showed cardiomegaly and bibasilar consolidation and bilateral pleural effusions. Last colonoscopy was approximately 5 years ago, so Hemoccult was performed and was positive. 2 units of packed red blood cells were ordered. Patient received 20 mg of Lasix before to prevent pulmonary edema, given increased BNP. Administered one gram of Rocephin for UTI. Plan is for admission for inpatient endoscopy/ colonoscopy. Case was discussed with admitting hospitalist, Dr. Bejarano who accepted the patient. Vital Signs Temperature 98.0 F 06/29/17 15:56 Pulse Rate 93 06/29/17 15:56 Respiratory Rate 20 06/29/17 15:56 Blood Pressure 115/67 06/29/17 15:56 O2 Sat by Pulse Oximetry 98 06/29/17 15:56 Temperature 98.0 F 06/29/17 15:56 Pulse Rate 93 06/29/17 18:28 Respiratory Rate 14 06/29/17 18:28 Blood Pressure 130/65 06/29/17 18:28 O2 Sat by Pulse Oximetry 97 06/29/17 18:28 Oxygen Delivery Oxygen Delivery Room Air Shortness of Breath/Dyspnea - Lab Data Lab results reviewed: Yes I reviewed the patient's lab results. Result diagrams: 06/29/17 16:28 06/29/17 16:28 Lab Results 06/29/17 06/29/17 06/29/17 Range/Units 16:28 16:28 16:28 WBC 10.8 (4.3-11.1) K/mcL RBC 2.32 L (3.82-4.97) M/mcL Hgb 5.8 L* (11.5-15.4) g/dL Hct 20.3 L (35.3-44.9) % MCV 87.5 (83.0-100.0) fL MCH 25.0 L (28.0-33.3) pg MCHC 28.6 L (31.6-35.5) g/dL RDW 18.7 H (11.5-14.5) % Plt Count 374 (140-400) K/mcL MPV 10.3 (9.4-12.4) fL Immature Gran % 0.5 (0-4) % Seg Neutrophils % 84.7 % Lymphocytes % 7.3 % Monocytes % 6.7 % Eosinophils % 0.5 % Basophils % 0.3 % Neutrophils # 9.2 H (1.6-8.9) K/mcL Lymphocytes # 0.8 (0.6-4.6) K/mcL Monocytes # 0.7 (0.0-1.3) K/mcL Eosinophils # 0.1 (0.0-0.6) K/mcL Basophils # 0.0 (0.0-0.2) K/mcL Hypochromasia Present A (Not Present) Sodium 141 (136-145) mEq/L Potassium 4.5 (3.5-5.1) mEq/L Chloride 105 (98-107) mEq/L Carbon Dioxide 24 (23-29) mEq/L BUN 40 H (8-23) mg/dL Creatinine 1.02 (0.60-1.20) mg/dL Est GFR ( Amer) > 60 (> 60) Est GFR (Non-Af Amer) 51 L (> 60) BUN/Creatinine Ratio 39 H (6-26) Glucose 118 H (70-105) mg/dL Calculated Osmolality 303 H (280-300) Calcium 8.5 L (8.6-10.3) mg/dL Troponin I < 0.03 (< 0.04) ng/mL B-Natriuretic Peptide 944 H (Less than 100) pg/mL TSH (0.340-5.600) mcIU/mL Urine Color (Yellow) Urine Clarity (Clear) Urine pH (5.0-8.0) pH Units Ur Specific [place] (1.010-1.025) Urine Protein (Neg-Trace) mg/dL Urine Glucose (UA) (Normal) mg/dL Urine Ketones (Negative) mg/dL Urine Blood (Negative) Urine Nitrite (Negative) Urine Bilirubin (Negative) Urine Urobilinogen (Normal) mg/dL Ur Leukocyte Esterase (Negative) Urine Microscopic WBC (0-3) per hpf Ur Squamous Epith Cells (None-Few) per lpf Urine Bacteria (None-Few) per hpf Hyaline Casts (None-Few) per lpf Ur Culture Indicated? (NO) Blood Type Antibody Screen Crossmatch 06/29/17 06/29/17 06/29/17 Range/Units 16:28 16:28 17:11 WBC (4.3-11.1) K/mcL RBC (3.82-4.97) M/mcL Hgb (11.5-15.4) g/dL Hct (35.3-44.9) % MCV (83.0-100.0) fL MCH (28.0-33.3) pg MCHC (31.6-35.5) g/dL RDW (11.5-14.5) % Plt Count (140-400) K/mcL MPV (9.4-12.4) fL Immature Gran % (0-4) % Seg Neutrophils % % Lymphocytes % % Monocytes % % Eosinophils % % Basophils % % Neutrophils # (1.6-8.9) K/mcL Lymphocytes # (0.6-4.6) K/mcL Monocytes # (0.0-1.3) K/mcL Eosinophils # (0.0-0.6) K/mcL Basophils # (0.0-0.2) K/mcL Hypochromasia (Not Present) Sodium (136-145) mEq/L Potassium (3.5-5.1) mEq/L Chloride (98-107) mEq/L Carbon Dioxide (23-29) mEq/L BUN (8-23) mg/dL Creatinine (0.60-1.20) mg/dL Est GFR ( Amer) (> 60) Est GFR (Non-Af Amer) (> 60) BUN/Creatinine Ratio (6-26) Glucose (70-105) mg/dL Calculated Osmolality (280-300) Calcium (8.6-10.3) mg/dL Troponin I (< 0.04) ng/mL B-Natriuretic Peptide (Less than 100) pg/mL TSH 5.884 H (0.340-5.600) mcIU/mL Urine Color Yellow (Yellow) Urine Clarity Cloudy A (Clear) Urine pH 6.0 (5.0-8.0) pH Units Ur Specific [place] 1.022 (1.010-1.025) Urine Protein 30 H (Neg-Trace) mg/dL Urine Glucose (UA) Normal (Normal) mg/dL Urine Ketones Negative (Negative) mg/dL Urine Blood Negative (Negative) Urine Nitrite Positive A (Negative) Urine Bilirubin Negative (Negative) Urine Urobilinogen Normal (Normal) mg/dL Ur Leukocyte Esterase Small H (Negative) Urine Microscopic WBC 5-15 H (0-3) per hpf Ur Squamous Epith Cells Many H (None-Few) per lpf Urine Bacteria Many H (None-Few) per hpf Hyaline Casts None Seen (None-Few) per lpf Ur Culture Indicated? NO. (NO) Blood Type A POSITIVE Antibody Screen NEGATIVE Crossmatch See Detail - Radiology Data Radiology results reviewed: Yes I reviewed the patient's radiology results. Chest X-Ray 06/29/17 16:11 IMPRESSION: 1. Cardiomegaly. 2. Calcific atherosclerosis aorta. 3. Nonspecific bibasilar consolidation and bilateral pleural effusion. Pneumonia is a consideration. D/ / Quentin Aceves / Quentin Aceves Interpreting Provider: Quentin Aceves - EKG Data EKG attestation: Yes I reviewed and interpreted this EKG. EKG results narrative: Sinus rhythm with left bundle branch block Rate 89 MT 117 QRS 144 QT/QTC 380/431 Attestation Statement - Attestation Attestation: I, Chris Drake DO, examined this patient [id number] and my medical decision-making was reviewed with Sung Huynh PGY-1, Resident Physician. I agree with the documented findings, disposition and treatment plan as described except to the extent set forth below. Please see my progress notes for details.
[2017-06-29 17:05] LABS: Hemoglobin 5.8 g/dL (11.5-15.4)
--- NOTE | 2017-06-29 17:06 | Emergency Department Note ---
Disposition Clinical Impression: UTI (urinary tract infection), Severe anemia, Heme positive stool Disposition: Admitted As Inpatient Condition: Good Referrals: Alley Barr CNP [Primary Care Provider] - Italo Barrow MD [Family Provider] - Forms: ED Satisfaction Letter Time of Disposition: 18:43 General Adult HPI - General Chief complaint: ED Shortness of Breath/Dyspnea Stated complaint: Low iron/sob Time Seen by Provider: 06/29/17 16:01 Source: patient, family Limitations: no limitations - History of Present Illness Pain Scale: 0 - Related Data Home Medications Medication Instructions Recorded Confirmed Cyanocobalamin (Vitamin B-12) 1,000 mcg PO DAILY 05/02/16 03/01/17 [Vitamin B12] Labetalol [Trandate] 50 mg PO BID 05/02/16 03/01/17 Vitamin B Complex [B Complex] 1 tab PO DAILY 05/02/16 03/01/17 Vitamin E 1,000 unit PO DAILY 05/02/16 03/01/17 Losartan Potassium [Cozaar] 50 mg PO DAILY 03/01/17 03/01/17 Omeprazole [PriLOSEC] 20 mg PO DAILY 03/01/17 03/01/17 Previous Rx's Medication Instructions Recorded Ferrous Sulfate 325 mg PO BIDWM #60 tablet 02/12/16 Simvastatin [Zocor] 10 mg PO HS #90 tablet 05/12/16 Folic Acid 1 mg PO DAILY #30 tablet 08/01/16 Allergies Allergy/AdvReac Type Severity Reaction Status Date / Time No Known Allergies Allergy Verified 06/29/17 16:00 Past Medical History - Past Medical History Medical history: Reports: hyperlipidemia, hypertension, other Surgical history: Reports: hysterectomy Psychiatric history: Reports: no psych history - Social History Smoking Status: Never smoker Smokeless Tobacco Status: No Alcohol use: Reports: none Drug use: Reports: none Physical Exam - General Limitations: no limitations General appearance: alert, in no apparent distress Course Vital Signs Temperature 98.0 F 06/29/17 15:56 Pulse Rate 93 06/29/17 15:56 Respiratory Rate 20 06/29/17 15:56 Blood Pressure 115/67 06/29/17 15:56 O2 Sat by Pulse Oximetry 98 06/29/17 15:56 Temperature 98.0 F 06/29/17 15:56 Pulse Rate 93 06/29/17 18:28 Respiratory Rate 14 06/29/17 18:28 Blood Pressure 130/65 06/29/17 18:28 O2 Sat by Pulse Oximetry 97 06/29/17 18:28 Oxygen Delivery Oxygen Delivery Room Air Medical Decision Making - Lab Data Result diagrams: 06/29/17 16:28 06/29/17 16:28 Lab Results 06/29/17 06/29/17 06/29/17 Range/Units 16:28 16:28 16:28 WBC 10.8 (4.3-11.1) K/mcL RBC 2.32 L (3.82-4.97) M/mcL Hgb 5.8 L* (11.5-15.4) g/dL Hct 20.3 L (35.3-44.9) % MCV 87.5 (83.0-100.0) fL MCH 25.0 L (28.0-33.3) pg MCHC 28.6 L (31.6-35.5) g/dL RDW 18.7 H (11.5-14.5) % Plt Count 374 (140-400) K/mcL MPV 10.3 (9.4-12.4) fL Immature Gran % 0.5 (0-4) % Seg Neutrophils % 84.7 % Lymphocytes % 7.3 % Monocytes % 6.7 % Eosinophils % 0.5 % Basophils % 0.3 % Neutrophils # 9.2 H (1.6-8.9) K/mcL Lymphocytes # 0.8 (0.6-4.6) K/mcL Monocytes # 0.7 (0.0-1.3) K/mcL Eosinophils # 0.1 (0.0-0.6) K/mcL Basophils # 0.0 (0.0-0.2) K/mcL Hypochromasia Present A (Not Present) Sodium 141 (136-145) mEq/L Potassium 4.5 (3.5-5.1) mEq/L Chloride 105 (98-107) mEq/L Carbon Dioxide 24 (23-29) mEq/L BUN 40 H (8-23) mg/dL Creatinine 1.02 (0.60-1.20) mg/dL Est GFR ( Amer) > 60 (> 60) Est GFR (Non-Af Amer) 51 L (> 60) BUN/Creatinine Ratio 39 H (6-26) Glucose 118 H (70-105) mg/dL Calculated Osmolality 303 H (280-300) Calcium 8.5 L (8.6-10.3) mg/dL Troponin I < 0.03 (< 0.04) ng/mL B-Natriuretic Peptide 944 H (Less than 100) pg/mL TSH (0.340-5.600) mcIU/mL Urine Color (Yellow) Urine Clarity (Clear) Urine pH (5.0-8.0) pH Units Ur Specific [place] (1.010-1.025) Urine Protein (Neg-Trace) mg/dL Urine Glucose (UA) (Normal) mg/dL Urine Ketones (Negative) mg/dL Urine Blood (Negative) Urine Nitrite (Negative) Urine Bilirubin (Negative) Urine Urobilinogen (Normal) mg/dL Ur Leukocyte Esterase (Negative) Urine Microscopic WBC (0-3) per hpf Ur Squamous Epith Cells (None-Few) per lpf Urine Bacteria (None-Few) per hpf Hyaline Casts (None-Few) per lpf Ur Culture Indicated? (NO) Blood Type Antibody Screen Crossmatch 06/29/17 06/29/17 06/29/17 Range/Units 16:28 16:28 17:11 WBC (4.3-11.1) K/mcL RBC (3.82-4.97) M/mcL Hgb (11.5-15.4) g/dL Hct (35.3-44.9) % MCV (83.0-100.0) fL MCH (28.0-33.3) pg MCHC (31.6-35.5) g/dL RDW (11.5-14.5) % Plt Count (140-400) K/mcL MPV (9.4-12.4) fL Immature Gran % (0-4) % Seg Neutrophils % % Lymphocytes % % Monocytes % % Eosinophils % % Basophils % % Neutrophils # (1.6-8.9) K/mcL Lymphocytes # (0.6-4.6) K/mcL Monocytes # (0.0-1.3) K/mcL Eosinophils # (0.0-0.6) K/mcL Basophils # (0.0-0.2) K/mcL Hypochromasia (Not Present) Sodium (136-145) mEq/L Potassium (3.5-5.1) mEq/L Chloride (98-107) mEq/L Carbon Dioxide (23-29) mEq/L BUN (8-23) mg/dL Creatinine (0.60-1.20) mg/dL Est GFR ( Amer) (> 60) Est GFR (Non-Af Amer) (> 60) BUN/Creatinine Ratio (6-26) Glucose (70-105) mg/dL Calculated Osmolality (280-300) Calcium (8.6-10.3) mg/dL Troponin I (< 0.04) ng/mL B-Natriuretic Peptide (Less than 100) pg/mL TSH 5.884 H (0.340-5.600) mcIU/mL Urine Color Yellow (Yellow) Urine Clarity Cloudy A (Clear) Urine pH 6.0 (5.0-8.0) pH Units Ur Specific [place] 1.022 (1.010-1.025) Urine Protein 30 H (Neg-Trace) mg/dL Urine Glucose (UA) Normal (Normal) mg/dL Urine Ketones Negative (Negative) mg/dL Urine Blood Negative (Negative) Urine Nitrite Positive A (Negative) Urine Bilirubin Negative (Negative) Urine Urobilinogen Normal (Normal) mg/dL Ur Leukocyte Esterase Small H (Negative) Urine Microscopic WBC 5-15 H (0-3) per hpf Ur Squamous Epith Cells Many H (None-Few) per lpf Urine Bacteria Many H (None-Few) per hpf Hyaline Casts None Seen (None-Few) per lpf Ur Culture Indicated? NO. (NO) Blood Type A POSITIVE Antibody Screen NEGATIVE Crossmatch See Detail Critical Care Time Critical Care Time: Yes Total Critical Care Time: 35 Attestation: Critical care performed: Time is exclusive of separately billable procedures. Time includes: direct patient care, patient reassessment, coordination of patient care, interpretation of data (laboratory data, radiology data, and respiratory data), review of patient's medical records, medical consultation and documentation of patient care. Procedures included in critical care time: Procedures excluded from critical care time: Attestation Statement - Attestation Attestation: I, Chris Drake DO, examined this patient [id number] and my medical decision-making was reviewed with Sung Huynh PGY-1, Resident Physician. I agree with the documented findings, disposition and treatment plan as described except to the extent set forth below. Please see my progress notes for details. 87-year-old female presents to emergency room complaining of generalized malaise , increased exertional dyspnea and orthopnea. Patient is very well-appearing on presentation was stable vital signs. Her lungs are clear heart is regular abdomen is soft. While resting in the bed, she denies chest pain shortness of breath headache vision changes nausea vomiting or diarrhea. Denies any fevers or chills. Patient appears to be neurologically intact her head is atraumatic pupils are round reactive discharge muscles are intact. Lungs clear to auscultation bilaterally. Heart is regular. Abdomen is soft nontender nondistended no guarding no rigidity. There is no signs of pitting edema or swelling in the upper and lower extremities. She has palpable pulses in the DP and PT distributions with no asymmetry noted. Patient speaking full sentences and does not appear to have any significant respiratory distress at this time. Patient is concerning for possible fluid overload versus congestive heart failure. Patient was screening evaluation a CBC chemistry chest x-ray including troponin and EKG and BNP. Patient will also have thyroid function urinalysis. Physical exam, patient also noted looks like a sebaceous information to her fall, left arm is quite large. Is approximately 2.5 cm x 3 cm. The area was anesthetized with lidocaine and 2 small incisions were made to remove the mass itself this time. Concern is noted the skin was deteriorating over the surface. The skin and the internal fat-containing material was sent down to pathology for evaluation make sure there is no visible signs of cancerous related issue. Does not remember most consistent with a hair follicle with sebaceous presentation. This procedure was completed by myself verbal consent from the patient under my direct supervision. Will be cleaned and packing will be given for home as well as wound care precautions. Patient will require further workup and treatment of what appears to be orthopnea with unknown etiology at this point. Patient will most likely need admission. No critical care provider this patient's treatment course at this time. See detailed documentation of the physical exam, medical intervention, medical decision-making and disposition in the resident physician's note. 1700 Patient found to have a hemoglobin of 5.8. Occult testing will be completed at this time. 2 units of blood will be ordered for transfusion. Most of the patient's symptoms. Most consistent with the anemia at this point. Admission process will be completed. 35 minutes of critical care applied secondary to blood transfusion stabilization. 1735 Patient's BNP is slightly elevated. Patient will be given 20 mg of Lasix here in the emergency room to help prevent against pulmonary edema. Patient has had stable blood pressure despite the anemia at this time. Blood transfusion as ordered. Admission process to be completed. Patient also has urinary tract infection I will be provided Rocephin here in the emergency room. This could be exacerbating the generalized weakness symptoms.
[2017-06-29 17:20] LABS: Hypochromasia Present (Not Present)
[2017-06-29 17:22] LABS: BUN/Creatinine Ratio 39 (6-26); Blood Urea Nitrogen 40 mg/dL (8-23); Calcium 8.5 mg/dL (8.6-10.3); Carbon Dioxide 24 mEq/L (23-29); Chloride 105 mEq/L (98-107); Glucose 118 mg/dL (70-105); Osmolality,Calculated 303 (280-300); Potassium 4.5 mEq/L (3.5-5.1); Sodium 141 mEq/L (136-145); Troponin I < 0.03 ng/mL (< 0.04); eGFR For African Americans > 60 (> 60); eGFR For Non-African Americans 51 (> 60)
[2017-06-29 17:27] LABS: Bilirubin,Urine Negative (Negative); Blood,Urine Negative (Negative); Clarity,Urine Cloudy (Clear); Color,Urine Yellow (Yellow); Glucose,Urine (UA) Normal (Normal); Ketones,Urine Negative (Negative); Leukocyte Esterase,Urine Small (Negative); Nitrite,Urine Positive (Negative); Protein,Urine 30 mg/dL (Neg-Trace); Specific Gravity,Urine 1.022 (1.010-1.025); Urobilinogen,Urine Normal (Normal)
[2017-06-29 17:29] LABS: Bacteria,Urine Many per hpf (None-Few); Hyaline Casts,Urine None Seen per lpf (None-Few); Squamous Epithelial Cell,Urine Many per lpf (None-Few)
[2017-06-29] MEDS ORDERED: Furosemide 20 MG/2 ML VIAL IVP ONE ×2 (17:37→22:12)
[2017-06-29] MEDS ORDERED: cefTRIAXone 1,000 MG in Water for inj. (sterile) 20 ML 10 ML IVP ONE (18:05)
[2017-06-29] MEDS ORDERED: 0.9 % Sodium Chloride 250 ML ONE (18:20)
--- NOTE | 2017-06-29 19:38 | Internal Med History&Physical ---
<Gloria Cook - Last Filed: 06/29/17 21:53> Date of Encounter: 06/29/17 Time of Encounter: 19:32 Assessment and Plan (1) Severe anemia Current visit: Yes Status: Acute Patient with history of upper GI bleed and iron deficiency anemia presents with hemoglobin of 5.8, with worsening exertional SOB and weakness. Hemeoccult in ED positive. Serial H/H Type and Screen drawn 2 units of packed red blood cells were ordered in ED, with lasix IV PPI Plan is for admission for possible inpatient endoscopy/colonoscopy. Consult to GI, appreciate recs (2) Severe calcific aortic stenosis Current visit: Yes Status: Chronic Patient has seen cardiology in April 2016. Per Cardiology note -ECHO 05/03/16 - reveals EF 60-65% with normal systolic function, indeterminate diastolic dysfunction, SEVERE aortic visually but moderate to severe on doppler, mild MR, mild TR, and mild pulm hypertension - known calcified aortic stenosis on prior echocardiogram since 2012 -Patient was a candidate for possible transcatheter aortic valve replacement then, however was adamant against surgery at that time 2D ECHO in AM pending (3) HTN (hypertension) Current visit: No Status: Chronic Serial vital signs. Continue home medication. Qualifiers: Hypertension type: essential hypertension Qualified Code(s): I10 - Essential (primary) hypertension (4) UTI (urinary tract infection) Current visit: Yes Status: Acute Urinalysis positive for nitrites and leukocyte esterase. Administered one gram of Rocephin for UTI in ED Squamous epithelial cells seen on UTI. Will Repeat UA, from clean catch sample pending Qualifiers: Urinary tract infection type: site unspecified Hematuria presence: without hematuria Qualified Code(s): N39.0 - Urinary tract infection, site not specified (5) CHF (congestive heart failure) Current visit: Yes Status: Acute SOB possibly 2/2 mild chronic diastolic CHF, with EKG with ischemic changes, cardiac ischemia cannot be excluded. Admit to R/o for cardiac ischemia' Cardiac work up initiated in ED with CBC, BMP, BNP, troponin, EKG, and CXR April 2016 BNP 182 Repeat EKG in a.m. Continue pulse ox. Maintain O2 levels above SPO2 Lasix given in ED for transfusion Duonebs q4 2D Echo CBC, BMP in a.m. Fasting Lipids Holding Aspirin due to severe anemia DVT prophylaxis: Mechanical prophylaxis Plan for strict I&Os, fluid restriction, and possible diuresis To discuss plan with attending Qualifiers: Heart failure type: diastolic Heart failure chronicity: chronic Qualified Code(s): I50.32 - Chronic diastolic (congestive) heart failure (6) Mass of left upper extremity Current visit: Yes Status: Acute Per ED, note mass seen on L arm, which was biopsied and removed. Sent for pathology. Daily wound care for appropriate wound dressing, as pt at increased risk for developing infections Wound care consult, appreciate recs (7) DVT prophylaxis Current visit: Yes Status: Acute EPCD (8) DNR (do not resuscitate) Current visit: Yes Status: Acute Pt clearly stated shakira in presence of family friend, in event of cardiac arrest, she wishes NO CPR or intubation. Internal Medicine - H&P: HPI Chief complaint: Fatigue, Dyspnea Admitted From: Home History of present illness: Ms. Mederos is a 87 year old female with past medical history of upper GI bleed, iron deficiency anemia, recent history of gastritis in 2013 presenting with fatigue and exertional dyspnea. Per close family friend, patient has complained of SOB and weakness for a "couple of weeks". Over the last two weeks, patient's fatigue has escalated that she has not left the house and recently would not come to door to meet patient. Family friend states "that's unlike her" and is why she brought patient to the ED. Friend has not noted any change in baseline mentation with onset of symptoms. Patient denies chest pain or abdominal pain, or overt bleeding. Denies hemoptysis. Denies hematuria. Denies urinary symptoms : No increased urinary frequency, no dysuria, no abdominal pain. She is status post IV iron infusions in 2013, 2014 and 2015. Pt retired in , for 40+ years, and lives alone. Has family outside of state. Past Med Surg Social Fam HX - Past Medical History Medical history: hyperlipidemia, hypertension, other Psychiatric history: no psych history - Past Surgical History Surgical History: hysterectomy - Social History Smoking Status: Never smoker Smokeless Tobacco Status: No Alcohol use: none Drug use: none Internal Medicine - H&P: Meds Ferrous Sulfate 325 mg PO BIDWM #60 tablet 02/12/16 [Rx] Cyanocobalamin (Vitamin B-12) [Vitamin B12] 1,000 mcg PO DAILY 05/02/16 [History ] Labetalol [Trandate] 50 mg PO BID 05/02/16 [History] Simvastatin [Zocor] 10 mg PO HS #90 tablet 05/12/16 [Rx] Folic Acid 1 mg PO DAILY #30 tablet 08/01/16 [Rx] Losartan Potassium [Cozaar] 50 mg PO DAILY 03/01/17 [History] Omeprazole [PriLOSEC] 20 mg PO DAILY 03/01/17 [History] B Complex with Vitamin C [Antonina-Bee with C] 1 each PO DAILY 06/29/17 [History] Vitamin E Acid Succinate [Vitamin E] 400 unit PO DAILY 06/29/17 [History] 3 Allergy/AdvReac Type Severity Reaction Status Date / Time No Known Allergies Allergy Verified 06/29/17 16:00 All Systems PM: A 10-system review of systems was performed and is negative for pertinent findings except as documented above in the HPI. - Constitutional Constitutional: as per HPI - Cardiovascular Cardiovascular ROS IM: as per HPI - Respiratory Respiratory: as per HPI - Gastrointestinal Gastrointestinal: as per HPI - Genitourinary Genitourinary: as per HPI - Constitutional Vitals: Temp Pulse Resp BP Pulse Ox 99.3 F 91 14 120/88 97 06/29/17 18:43 06/29/17 18:43 06/29/17 18:43 06/29/17 18:43 06/29/17 18:43 General appearance: Present: cooperative, A&O X 3, no acute distress, answers questions appropriately - Head Head exam: Present: atraumatic, normocephalic - Neck Additional comments: positive hepatojugular reflex - Respiratory Respiratory exam: Present: rales (faint, in lower bases). Absent: chest wall tenderness, wheezes - Cardiovascular Additional comments: mid-systolic ejection murmur, overlying 2nd intercostal space, with radiation into right neck - GI/Abdominal GI/Abdominal exam: Present: normal bowel sounds, soft, no peritoneal signs. Absent: distended, firm - Extremities Exam Extremities exam: Present: pedal edema (+1). Absent: calf tenderness, cyanotic , tenderness Additional comments: L Upper Arm, bandaged - Below bandage: Open wound s/p appears biopsy, not actively bleeding. - Psychiatric Psychiatric exam: Present: normal mood Additional comments: Goal-directed speech. Coherent thought process. Internal Med - H&P Results - Labs CBC & Chem 7: 06/29/17 16:28 06/29/17 16:28 Labs: Short CBC 06/29/17 Range/Units 16:28 WBC 10.8 (4.3-11.1) K/mcL Hgb 5.8 L* (11.5-15.4) g/dL Hct 20.3 L (35.3-44.9) % Plt Count 374 (140-400) K/mcL Neutrophils # 9.2 H (1.6-8.9) K/mcL BMP 06/29/17 16:28 Sodium 141 Potassium 4.5 Chloride 105 Carbon Dioxide 24 BUN 40 H Creatinine 1.02 Glucose 118 H Calcium 8.5 L Cardiac Enzymes 06/29/17 Range/Units 16:28 Troponin I < 0.03 (< 0.04) ng/mL Urine 06/29/17 Range/Units 17:11 Urine Color Yellow (Yellow) Urine Clarity Cloudy A (Clear) Urine pH 6.0 (5.0-8.0) pH Units Ur Specific Carrier 1.022 (1.010-1.025) Urine Protein 30 H (Neg-Trace) mg/dL Urine Glucose (UA) Normal (Normal) mg/dL - EKG Data EKG comments: 06/29/17 ED EKG reviewed with attending Sinus rhythm with left bundle branch block Rate 89 ID 117 QRS 144 QT/QTC 380/431 - Impressions ITS Impressions Chest X-Ray 06/29/17 16:11 IMPRESSION: 1. Cardiomegaly. 2. Calcific atherosclerosis aorta. 3. Nonspecific bibasilar consolidation and bilateral pleural effusion. Pneumonia is a consideration. D/ / Quentin Aceves / Quentin Aceves Interpreting Provider: Quentin Aceves <Timothy Choudhary - Last Filed: 06/30/17 02:52> Date of Encounter: 06/29/17 Internal Medicine - H&P: HPI History of present illness: Ms. Mederos is a 87 year old female All Systems PM: A 10-system review of systems was performed and is negative for pertinent findings except as documented above in the HPI. - Constitutional Vitals: Temp Pulse Resp BP Pulse Ox 98.3 F 86 18 123/75 96 06/29/17 23:23 06/29/17 23:23 06/29/17 23:23 06/29/17 23:23 06/29/17 21:57 Internal Med - H&P Results - Labs CBC & Chem 7: 06/29/17 16:28 06/29/17 16:28 - Attending Attestation I examined this patient and my medical decision-making was reviewed with the Resident Physician Dr. Cook. I agree with the documented findings, disposition and treatment plan as described except to the extent set forth below. Ms. Mederos is a 87 year old female with past medical history of upper GI bleed, iron deficiency anemia, and Gastric / duondenal ulcer pt presented to ER with exertional dyspnea and fatigue. She did mention dark colored stools, however she does take Iron supplements. She denied any CP. Gen: A, A, O x 3 Chest: Diminished BS b/l Heart: S1S2 + RRR No murmurs Abd: Soft, NT a/p 1. Acute blood loss anemia 2. Acute GI ( upper ) bleed PPI BID NPO PRBC transfusion GI consult for possible EGD in AM 3. Acute mild diastolic CHF exacerbation Lasix PRN
[2017-06-29] MEDS ORDERED: Naloxone 0.4 MG/ML INJ IVP PRN (20:20)
[2017-06-29] MEDS: Ipratropium/Albuterol Neb 3 ML IH SCH (21:57)
[2017-06-29] MEDS ORDERED: Acetaminophen 325 MG TABLET PO ONE (22:12)
[2017-06-30] MEDS: Ipratropium/Albuterol Neb 3 ML IH SCH ×2 (04:24→11:58)
[2017-06-30 05:04] LABS: Basophils % 0.4 %; Eosinophils # 0.1 K/mcL (0.0-0.6); Eosinophils % 1.6 %; Hematocrit 28.4 % (35.3-44.9); Hemoglobin 8.8 g/dL (11.5-15.4); Immature Granulocytes % 0.4 % (0-4); Lymphocytes # 1.6 K/mcL (0.6-4.6); Lymphocytes % 19.6 %; Mean Corpuscular Hemoglobin 26.8 pg (28.0-33.3); Mean Corpuscular Volume 86.6 fL (83.0-100.0); Mean Platelet Volume 10.3 fL (9.4-12.4); Monocytes # 0.7 K/mcL (0.0-1.3); Monocytes % 8.4 %; Neutrophils # 5.8 K/mcL (1.6-8.9); Platelet Count 377 K/mcL (140-400); Red Blood Count 3.28 M/mcL (3.82-4.97); Red Cell Distribution Width 17.2 % (11.5-14.5); Segmented Neutrophils % 69.6 %
[2017-06-30 05:07] LABS: Hematocrit 28.5 % (35.3-44.9); Hemoglobin 8.8 g/dL (11.5-15.4)
[2017-06-30 05:12] LABS: Activated Partial Thrombo Time 30.4 Seconds (26.0-36.0)
[2017-06-30 05:27] LABS: Calcium 8.5 mg/dL (8.6-10.3); Chol/HDL Ratio 3.1 (0-4.9); Potassium 4.1 mEq/L (3.5-5.1)
[2017-06-30 05:28] LABS: % Iron Saturation 13 % (15-50); INR 1.2; Iron 35 mcg/dL (50-170); Prothrombin Time 13.1 Seconds (9.4-12.1); Transferrin 196 mg/dL (203-362)
[2017-06-30 05:51] LABS: Folate > 22.3 ng/mL (3.0-16.0); Vitamin B12 > 1500 pg/mL (250-1100)
[2017-06-30] MEDS ORDERED: Pantoprazole 40 MG VIAL IVP SCH (06:00)
--- NOTE | 2017-06-30 10:03 | Gastroenterology Consult Note ---
<Fabio Mata - Last Filed: 06/30/17 11:45> Date of Encounter: 06/30/17 Time of Encounter: 10:00 - Assessment and plan (1) Severe anemia Status: Acute Assessment and plan: Patient with h/o iron deficiency anemia, B12 deficiency, GERD, gastric ulcer, and gastritis who presented to the ED c/o fatigue, weakness, and SOB with exertion for the past 2 weeks. Patient had heme (+) stool. She denies blood thinner use. 02/14/[address] Salgado revealed hiatal hernia, gastric ulcer biopsied, pathology report revealed chronic gastritis 06/01/[address] Salgado revealed tortuous colon, sigmoid diverticuli Initial HGB level 5.8 Patient received 2 units PRBCs. HGB increased to 8.8 this AM, vitals remain stable. Continue PPI BID Stable from a GI standpoint. Okay to start a regular diet and schedule patient for an outpatient EGD and Colonoscopy. - Time Spent With Patient Total time spent is greater than 50% in coordination of care (as documented) at patient's floor/unit and/or counseling patient: GI History of Present Illness - Data of Consult Patient: new to practice Consult date: 06/29/17 Requesting Physician: Clive Henderson MD - Consult Narrative Reason for consult: Hgb 5.8 w/ hx of iron deficiency anemia History of present illness: Ms. Mederos is a 87 year old female with a PMH of HTN, GERD, gastric ulcer, iron deficiency anemia, B12 deficiency, and gastritis who presented to the ED c/o fatigue, weakness, and SOB with exertion for the past 2 weeks. Patient reports dark colored stools, however she does take iron supplements and last iron infusion was in 2016. She denies fever, chills, CP, SOB, abd pain, N/V/D, constipation, hematochezia, leg edema, or blood thinner use. In the ED, labs revealed HGB level 5.8, heme (+) stool, and patient received 2 units PRBCs. Her HGB increased to 8.8 this AM and vitals remain stable. Patient reports she is hungry. 02/14/[address] Salgado revealed hiatal hernia, gastric ulcer biopsied, pathology report revealed chronic gastritis 06/01/[address] Salgado revealed tortuous colon, sigmoid diverticuli Colonoscopy: 06/01/11 Dr. Salgado: Tortuous colon, sigmoid diverticuli EGD: 02/14/12 Dr. Salgado: Hiatal hernia, gastric ulcer, chronic gastritis Past Med Surg Social Fam HX - Past Medical History Medical history: hyperlipidemia, hypertension, other Psychiatric history: no psych history - Past Surgical History Surgical History: hysterectomy - Social History Smoking Status: Never smoker Smokeless Tobacco Status: No Alcohol use: none Drug use: none - Gastrointestinal Gastrointestinal: Present: heartburn, melena. Absent: abdominal pain, bloating , change in bowel habits, constipation, diarrhea, dyspepsia, hematemesis, hematochezia, nausea, vomiting - Constitutional Constitutional: fatigue, no anorexia, no weight gain, no weight loss - EENT Nose, mouth and throat: Absent: dysphagia, sore throat - Cardiovascular Cardiovascular ROS: Absent: chest pain, irregular heart rhythm, palpitations - Respiratory Respiratory IM: Present: dyspnea. Absent: cough, hemoptysis - Genitourinary Genitourinary: Absent: change in color, Urinary frequency - Neurological ROS Neurological GI: Present: dizziness, weakness. Absent: confusion, headache( s) - Hematologic/Lymphatic Hematologic/Lymphatic pediatric: Present: as per HPI. Absent: easy bleeding - Musculoskeletal Musculoskeletal ROS GI: Absent: back pain, joint swelling - Integumentary Integumentary GI: Absent: jaundice, pruritis, rash - Psychiatric ROS Psychiatric GI: Absent: anxiety, depression - Endocrine Endocrine IM: Present: fatigue. Absent: cold intolerance, heat intolerance - Constitutional Vitals: Temp Pulse Resp BP Pulse Ox 98.1 F 90 16 155/75 95 06/30/17 07:29 06/30/17 07:29 06/30/17 07:29 06/30/17 07:29 06/30/17 09:28 General appearance: Present: cooperative, A&O X 3, no acute distress, obese, answers questions appropriately - Head Head exam: Present: atraumatic, normocephalic - Eye Eye exam: Present: normal appearance, sclera anicteric - ENT ENT exam: Present: mucous membranes dry, normal oropharynx - Neck Neck exam general surgery: Present: normal inspection, trachea midline - Respiratory Respiratory exam: Present: decreased breath sounds. Absent: wheezes - Cardiovascular Cardiovascular exam: Present: RRR, +S1, +S2 - GI/Abdominal GI/Abdominal exam: Present: normal bowel sounds, soft, no peritoneal signs. Absent: distended, guarding, tenderness - Expanded GI/Abdominal Exam GI/Abdominal exam expanded: Absent: ascites - Rectal Rectal exam: Present: heme (+) stool. Absent: black stool, bloody stool - Extremities Exam Extremities exam: Present: pedal edema (L>R), warm - Neurological Exam Neurological exam: Present: alert, oriented X3, no focal deficits - Psychiatric Psychiatric exam: Present: normal affect, normal mood - Skin Skin exam: Present: dry, erythema (LUE), intact, normal color, warm Results - Labs CBC & Chem 7: 06/30/17 04:21 06/30/17 04:21 Labs: Last Result Calcium 8.5 mg/dL (8.6-10.3) L 06/30/17 04:21 Iron 35 mcg/dL (50-170) L 06/30/17 04:21 % Saturation 13 % (15-50) L 06/30/17 04:21 Transferrin 196 mg/dL (203-362) L 06/30/17 04:21 Troponin I < 0.03 ng/mL (< 0.04) 06/29/17 16:28 Triglycerides 107 mg/dL (< 150) 06/30/17 04:21 Vitamin B12 > 1500 pg/mL (250-1100) H 06/30/17 04:21 Folate > 22.3 ng/mL (3.0-16.0) H 06/30/17 04:21 Entire Visit Hgb 8.8 g/dL (11.5-15.4) L D 06/30/17 04:21 Hct 28.4 % (35.3-44.9) L 06/30/17 04:21 PT 13.1 Seconds (9.4-12.1) H 06/30/17 04:21 Folate > 22.3 ng/mL (3.0-16.0) H 06/30/17 04:21 - ABG ABG results: PT/INR, D-dimer PT 13.1 Seconds (9.4-12.1) H 06/30/17 04:21 - Impressions ITS Impressions Chest X-Ray 06/29/17 16:11 IMPRESSION: 1. Cardiomegaly. 2. Calcific atherosclerosis aorta. 3. Nonspecific bibasilar consolidation and bilateral pleural effusion. Pneumonia is a consideration. D/ / Quentin Aceves / Quentin Aceves Interpreting Provider: Quentin Aceves Consult Discharge Plan - Plan Instructions: Anemia (GEN) Referrals: Alley Barr, [employer] [Primary Care Provider] - <Marv Lake - Last Filed: 07/19/17 05:13> Date of Encounter: 06/30/17 - Time Spent With Patient Total time spent is greater than 50% in coordination of care (as documented) at patient's floor/unit and/or counseling patient: GI History of Present Illness - Data of Consult Requesting Physician: Clive Henderson MD - Consult Narrative History of present illness: Ms. Mederos is a 87 year old female - Constitutional Vitals: Temp Pulse Resp BP Pulse Ox 97.4 F L 81 15 110/65 96 07/01/17 10:57 07/01/17 10:57 07/01/17 10:57 07/01/17 10:57 07/01/17 10:57 Results - Labs CBC & Chem 7: 07/01/17 05:51 07/01/17 05:51 Labs: Last Result Calcium 8.2 mg/dL (8.6-10.3) L 07/01/17 05:51 Iron 35 mcg/dL (50-170) L 06/30/17 04:21 % Saturation 13 % (15-50) L 06/30/17 04:21 Transferrin 196 mg/dL (203-362) L 06/30/17 04:21 Troponin I < 0.03 ng/mL (< 0.04) 06/29/17 16:28 Triglycerides 107 mg/dL (< 150) 06/30/17 04:21 Vitamin B12 > 1500 pg/mL (250-1100) H 06/30/17 04:21 Folate > 22.3 ng/mL (3.0-16.0) H 06/30/17 04:21 Entire Visit Hgb 8.4 g/dL (11.5-15.4) L 07/01/17 05:51 Hct 27.5 % (35.3-44.9) L 07/01/17 05:51 PT 13.1 Seconds (9.4-12.1) H 06/30/17 04:21 Folate > 22.3 ng/mL (3.0-16.0) H 06/30/17 04:21 - ABG ABG results: PT/INR, D-dimer PT 13.1 Seconds (9.4-12.1) H 06/30/17 04:21 - Attending Attestation Agree with outpatient workup with EGD and colonoscopy I examined this patient and my medical decision-making was reviewed with the Resident Physician. I agree with the documented findings, disposition and treatment plan as described except to the extent set forth below.
[2017-06-30] MEDS ORDERED: Ipratropium/Albuterol Neb 3 ML IH PRN (10:15)
[2017-06-30] MEDS: Folic Acid 1 MG TABLET PO SCH (11:13)
[2017-06-30] MEDS: Vitamin B Complex/Vit C/Vit E 1 EACH TABLET PO SCH (11:13)
--- NOTE | 2017-06-30 12:43 | Internal Med Progress Note ---
Date of Encounter: 06/30/17 Time of Encounter: 13:05 - Assessment and plan (1) CHF (congestive heart failure) Current Visit: Yes Status: Chronic Assessment and plan: euvolemic on exam ECHO from 05/03/16 - reveals EF 60-65% with normal systolic function, indeterminate diastolic dysfunction, SEVERE aortic visually but moderate to severe on doppler, mild MR, mild TR, and mild pulm hypertension no pedal edema CTAB Continue home meds Follow repeat ECHO Qualifiers: Heart failure type: diastolic Heart failure chronicity: chronic Qualified Code(s): I50.32 - Chronic diastolic (congestive) heart failure (2) Mass of left upper extremity Current Visit: Yes Status: Acute Assessment and plan: Per ED, note mass seen on L arm, which was biopsied and removed. Sent for pathology. Wound care consulted, appreciate recs (3) Severe anemia Current Visit: Yes Status: Acute Assessment and plan: Patient with history of upper GI bleed and iron deficiency anemia presents with hemoglobin of 5.8, with worsening exertional SOB and weakness. Hemeoccult in ED documentation said to be positive. s/p 2 units RBCS HB improved to 8 this a.m GI eval noted-no intervention at this time Continue to monitor HB Patient is hemodynamically stable (4) UTI (urinary tract infection) Current Visit: Yes Status: Suspected Assessment and plan: suspected UA dirty/contaminated Patient has no urinary symptoms Culture was not sent We will repeat UA if patient has symptoms NO indication for antibiotics at this time Qualifiers: Urinary tract infection type: site unspecified Hematuria presence: without hematuria Qualified Code(s): N39.0 - Urinary tract infection, site not specified (5) Severe calcific aortic stenosis Current Visit: Yes Status: Chronic Assessment and plan: refused work up in the past. REfuses intervention/surgery ECHO ordered by admitting team, will follow (6) HTN (hypertension) Current Visit: No Status: Chronic Qualifiers: Hypertension type: essential hypertension Qualified Code(s): I10 - Essential (primary) hypertension (7) Iron deficiency anemia Current Visit: Yes Status: Chronic Assessment and plan: continue home doses of iron Qualifiers: Iron deficiency anemia type: unspecified iron deficiency Qualified Code(s) : D50.9 - Iron deficiency anemia, unspecified - Time Spent With Patient Total time spent is greater than 50% in coordination of care (as documented) at patient's floor/unit and/or counseling patient: - Subjective Interval history: Seen and examined at bedside Per GI no intervention is planned, she is s/p 2 units RBCs, and HB is improved She denies new complains She lives alone and is not having any hematemesis Her stool is black but she is on FeSO4 She denies urinary symptoms The ER performed a biopsy/excision of subcut cyst and she is pending wound RN eval for care - Constitutional Vitals: Temp Pulse Resp BP Pulse Ox 98.8 F 85 16 137/78 95 06/30/17 10:28 06/30/17 10:28 06/30/17 10:28 06/30/17 10:28 06/30/17 10:28 General appearance: Present: cooperative, A&O X 3, no acute distress, answers questions appropriately - Head Head exam: Present: atraumatic, normocephalic - Eye Eye exam: Present: PERRL, conjuntiva pink, sclera anicteric Pupils: Present: PERRL - Neck Neck exam general surgery: Present: supple, trachea midline. Absent: lymphadenopathy - Respiratory Respiratory exam: Present: CTAB. Absent: accessory muscle use, rales, rhonchi, wheezes - Cardiovascular Cardiovascular exam: Present: RRR, +S1, +S2, systolic murmur. Absent: diastolic murmur, gallop, rubs - GI/Abdominal GI/Abdominal exam: Present: normal bowel sounds, soft, no peritoneal signs. Absent: distended, tenderness - Extremities Exam Extremities exam: Present: warm, radial pulses palpable and symmetrical. Absent : calf tenderness, cyanotic, pedal edema Additional comments: wound dressing clean and dry - Neurological Exam Neurological exam: Present: alert, CN II-XII intact, oriented X3, no focal deficits. Absent: pronater drift, facial droop, speech deficit - Skin Skin exam: Present: dry, intact Internal Medicine: Result - Labs CBC & Chem 7: 06/30/17 12:10 06/30/17 04:21 Labs: Short CBC 06/30/17 06/30/17 Range/Units 04:21 04:21 WBC 8.4 (4.3-11.1) K/mcL Hgb 8.8 L D 8.8 L (11.5-15.4) g/dL Hct 28.4 L 28.5 L (35.3-44.9) % Plt Count 377 (140-400) K/mcL Neutrophils # 5.8 (1.6-8.9) K/mcL BMP 06/30/17 04:21 Sodium 139 Potassium 4.1 Chloride 105 Carbon Dioxide 24 BUN 38 H Creatinine 1.05 Glucose 97 Calcium 8.5 L - ABG Interpretation ABG results: PT/INR, D-dimer PT 13.1 Seconds (9.4-12.1) H 06/30/17 04:21 - VTE Documentation of Mechanical Device: Intermittent pneumatic compression device Consult Discharge Plan - Plan Referrals: Alley Barr, INTERNAL MEDICINE VETERINARY TECHNICIAN [Primary Care Provider] -
[2017-06-30 12:51] LABS: Hematocrit 27.6 % (35.3-44.9); Hemoglobin 8.5 g/dL (11.5-15.4)
[2017-06-30] MEDS: Silvasorb 44.4 ML TUBE TP SCH (16:06)
[2017-06-30 19:20] LABS: Hematocrit 27.1 % (35.3-44.9); Hemoglobin 8.4 g/dL (11.5-15.4)
[2017-07-01 06:24] LABS: Basophils % 0.5 %; Eosinophils # 0.2 K/mcL (0.0-0.6); Eosinophils % 1.9 %; Hematocrit 27.5 % (35.3-44.9); Hemoglobin 8.4 g/dL (11.5-15.4); Immature Granulocytes % 0.4 % (0-4); Lymphocytes # 1.1 K/mcL (0.6-4.6); Lymphocytes % 13.4 %; Mean Corpuscular HGB Conc 30.5 g/dL (31.6-35.5); Mean Corpuscular Hemoglobin 26.8 pg (28.0-33.3); Mean Corpuscular Volume 87.9 fL (83.0-100.0); Mean Platelet Volume 10.2 fL (9.4-12.4); Monocytes # 0.6 K/mcL (0.0-1.3); Neutrophils # 6.1 K/mcL (1.6-8.9); Nucleated Red Blood Cells 0.3 /100 WBC (0); Platelet Count 356 K/mcL (140-400); Red Blood Count 3.13 M/mcL (3.82-4.97); Segmented Neutrophils % 75.8 %
[2017-07-01 06:46] LABS: BUN/Creatinine Ratio 29 (6-26); Blood Urea Nitrogen 30 mg/dL (8-23); Calcium 8.2 mg/dL (8.6-10.3); Carbon Dioxide 27 mEq/L (23-29); Chloride 107 mEq/L (98-107); Glucose 101 mg/dL (70-105); Osmolality,Calculated 296 (280-300); Potassium 4.2 mEq/L (3.5-5.1); Sodium 140 mEq/L (136-145); eGFR For African Americans > 60 (> 60); eGFR For Non-African Americans 50 (> 60)
[2017-07-01] MEDS: Folic Acid 1 MG TABLET PO SCH (08:02)
[2017-07-01] MEDS: Vitamin B Complex/Vit C/Vit E 1 EACH TABLET PO SCH (08:02)
[2017-07-01] MEDS: Silvasorb 44.4 ML TUBE TP SCH (08:03)
[2017-07-01 11:02] VITALS: BP 110/65
--- NOTE | 2017-07-01 11:22 | Discharge Summary ---
- NOTES TO OUTPATIENT PROVIDER Notes to Outpatient Provider: Admitted for acute on chronic CARLA. Received 2 units RBCs. Per GI, no intervention in-patient. Follow up with GI as outpatient. NO change in home medications. She had a left arm sebaceous cyst excised by the ER team, kindly follow up with the pathology report Orders not resulted at time of discharge: Pathology of L arm sebaceous cyst Date of Encounter: 07/01/17 Time of Encounter: 11:20 - Discharge Diagnosis (1) CHF (congestive heart failure) Priority: Secondary Status: Chronic Qualifiers: Heart failure type: diastolic Heart failure chronicity: chronic Qualified Code(s): I50.32 - Chronic diastolic (congestive) heart failure (2) Mass of left upper extremity Priority: Primary Status: Acute (3) Severe anemia Priority: Primary Status: Acute (4) UTI (urinary tract infection) Priority: Primary Status: Suspected Qualifiers: Urinary tract infection type: site unspecified Hematuria presence: without hematuria Qualified Code(s): N39.0 - Urinary tract infection, site not specified (5) Severe calcific aortic stenosis Priority: Secondary Status: Chronic (6) HTN (hypertension) Priority: Secondary Status: Chronic Qualifiers: Hypertension type: essential hypertension Qualified Code(s): I10 - Essential (primary) hypertension (7) Iron deficiency anemia Priority: Secondary Status: Chronic Qualifiers: Iron deficiency anemia type: unspecified iron deficiency Qualified Code(s) : D50.9 - Iron deficiency anemia, unspecified Hospital course: Ms. Mederos is a 87 year old female with iron deficiency anemia. For the oncology clinic, severe aortic stenosis. Any plan for intervention per patient, left arm sebaceous cyst which is chronic. She presented to the ER with complaints of symptomatic anemia. Hemoglobin is low found to be 5.8. She received 2 units of red blood cells with adequate response. Work up shows severely iron levels low saturation. The patient is compliant with her medications. The left arm sebaceous cyst was removed the emergency room physician. Gastroenterology evaluation in the hospital stated no intervention was required right away. Patient will be following up with oncology, gastroenterology, and her primary care doctor. Discharge discussed with: patient, nurse - Time Spent with Patient Total time spent providing and/or coordinating discharge services: Less than 30 minutes - Discharge Medications Home Medications: Ferrous Sulfate 325 mg PO BIDWM #60 tablet 02/12/16 [Rx] Cyanocobalamin (Vitamin B-12) [Vitamin B12] 1,000 mcg PO DAILY 05/02/16 [History ] Labetalol [Trandate] 50 mg PO BID 05/02/16 [History] Simvastatin [Zocor] 10 mg PO HS #90 tablet 05/12/16 [Rx] Folic Acid 1 mg PO DAILY #30 tablet 08/01/16 [Rx] Losartan Potassium [Cozaar] 50 mg PO DAILY 03/01/17 [History] Omeprazole [PriLOSEC] 20 mg PO DAILY 03/01/17 [History] B Complex with Vitamin C [Antonina-Bee with C] 1 each PO DAILY 06/29/17 [History] Vitamin E Acid Succinate [Vitamin E] 400 unit PO DAILY 06/29/17 [History] Silvasorb 1 appl TP DAILY tube 07/01/17 [Rx] Allergies/Adverse Reactions: 3 Allergy/AdvReac Type Severity Reaction Status Date / Time No Known Allergies Allergy Verified 06/29/17 16:00 Date of admission: 06/29/17 21:49 Primary care physician: Alley Barr, [employer] Consults: 06/29/17 21:59 Consult to Wound Care [CONS] Routine Reason for Consult: L ARM s/p biopsy, wound care. Call Completed: No Discharging clinician: Clive Henderson Anticipated date of discharge: 07/01/17 - Constitutional Vitals: Temp Pulse Resp BP Pulse Ox 97.4 F L 81 15 110/65 96 07/01/17 10:57 07/01/17 10:57 07/01/17 10:57 07/01/17 10:57 07/01/17 10:57 General appearance: Present: cooperative, A&O X 3, no acute distress, answers questions appropriately - Head Head exam: Present: atraumatic, normocephalic - Eye Eye exam: Present: PERRL, conjuntiva pink, sclera anicteric - Neck Neck exam general surgery: Present: supple, trachea midline. Absent: lymphadenopathy - Respiratory Respiratory exam: Present: CTAB. Absent: accessory muscle use, rales, rhonchi, wheezes - Cardiovascular Cardiovascular exam: Present: RRR, +S1, +S2. Absent: diastolic murmur, gallop, rubs, systolic murmur - GI/Abdominal GI/Abdominal exam: Present: normal bowel sounds, soft, no peritoneal signs. Absent: distended, tenderness - Extremities Exam Extremities exam: Present: warm, radial pulses palpable and symmetrical. Absent : calf tenderness, cyanotic, pedal edema Additional comments: left arm wound clean and dry dressing - Neurological Exam Neurological exam: Present: alert, CN II-XII intact, oriented X3, no focal deficits. Absent: pronater drift, facial droop, speech deficit - Skin Skin exam: Present: dry, intact - Patient Status Disposition: Home, Self-Care Condition: Good Functional capacity at discharge: independent ambulation Overall status at discharge: patient is back to baseline - Discharge Instructions Instructions: Anemia (GEN) Follow Up With: Alley Barr [employer] [Primary Care Provider] - - Diet and Activity Activity: resume usual activities as tolerated - VTE Documentation of Mechanical Device: Intermittent pneumatic compression device
--- NOTE | 2017-07-01 13:13 | Electrocardiograph Report ---
[place] [id number] Test Date: 2017-06-29 Pat Name: Betina Mederos Department: 102 Room: 3A21 Gender: F Subcontract Administrator: Lexi : [id number] Requested By: Sung Huynh Order Number: [id number] Reading MD: Alisha Her Measurements Intervals [place] Rate: 89 P: -15 AK: 117 QRS: -7 QRSD: 144 T: 138 QT: 384 QTc: 431 Interpretive Statements SINUS RHYTHM LEFT BUNDLE BRANCH BLOCK [120+ ms QRS DURATION, 80+ ms Q/S IN V1/V2, 85+ ms R IN I/aVL/V5/V6] Electronically Signed On 07-01-2017 13:12:11 EDT by Alisha Her
== END 2017-07-01 12:08 | disposition home or self-care (01) | DRG 811 ==
LOC: EMEROO 15:53 → 3ANU 15:53
PROVIDERS: ADMIT Internal Medicine; ATTEND Internal Medicine

== ENCOUNTER 2017-07-19 16:23 | Observation (INO) ==
[2017-07-19] MEDS ORDERED: Ipratropium/Albuterol Neb 3 ML IH ONE (16:34)
[2017-07-19] MEDS ORDERED: methylPREDNISolone 125 MG/2 ML VIAL IVP ONE (17:00)
--- NOTE | 2017-07-19 17:04 | Emergency Department Note ---
Disposition Clinical Impression: Weakness, Heme positive stool Anemia Qualifiers: Anemia type: iron deficiency Iron deficiency anemia type: unspecified iron deficiency Qualified Code(s): D50.9 - Iron deficiency anemia, unspecified CHF (congestive heart failure) Qualifiers: Heart failure type: unspecified Heart failure chronicity: acute on chronic Qualified Code(s): I50.9 - Heart failure, unspecified Disposition: Admitted As Inpatient Condition: Good Time of Disposition: 18:41 General Adult HPI - General Chief complaint: ED Shortness of Breath/Dyspnea Stated complaint: EMMANUELLE/Weakness Time Seen by Provider: 07/19/17 16:32 Source: patient Limitations: no limitations Nursing Notes Reviewed: Yes Vital Signs Reviewed: Yes - History of Present Illness HPI Narrative: Ms. Mederos is a very pleasant 87-year-old female with a past history of iron deficiency anemia, hypertension, hyperlipidemia, severe aortic stenosis, history of gastric and duodenal ulcers, and congestive heart failure who presents to the [facility] emergency department with a chief complaint of shortness of breath and weakness. She reports the symptoms present for several days now. Patient is ambulatory and lives alone. She reports that she is eating and drinking appropriately. Patient was recently admitted here at the [facility] and discharged on 07/01/17 she was found to have a UTI and be severely anemic with hemoglobin of 5.8. Patient required 2 units of packed red blood cells. No other intervention was performed by gastroenterology becuase patient refused colonoscopy. Patient has a history of having iron injections. Patient did have a echocardiogram performed on 06/30/17 that demonstrated an EF of 20-30% with severe aortic stenosis. She denies any other associated symptoms such as chest pain, palpations, nausea, vomiting, abdominal pain, dysuria, hematuria, melena, hematochezia, fever or lightheadedness. She denies any recent sick contacts. Her daughter was present and reported that she called her last week and stated "I am ready to ". "All my friends have ". She denies any tobacco or alcohol abuse. No anticoagulation therapy. No other complaints at this time. Pain Scale: 6 - Related Data Home Medications Medication Instructions Recorded Confirmed Cyanocobalamin (Vitamin B-12) 1,000 mcg PO DAILY 05/02/16 07/12/17 [Vitamin B12] Labetalol [Trandate] 50 mg PO BID 05/02/16 07/12/17 Losartan Potassium [Cozaar] 50 mg PO DAILY 03/01/17 07/12/17 Omeprazole [PriLOSEC] 20 mg PO DAILY 03/01/17 07/12/17 B Complex with Vitamin C [Antonina-Bee 1 each PO DAILY 06/29/17 07/12/17 with C] Vitamin E Acid Succinate [Vitamin 400 unit PO DAILY 06/29/17 07/12/17 E] Previous Rx's Medication Instructions Recorded Ferrous Sulfate 325 mg PO BIDWM #60 tablet 02/12/16 Simvastatin [Zocor] 10 mg PO HS #90 tablet 05/12/16 Folic Acid 1 mg PO DAILY #30 tablet 08/01/16 Allergies Allergy/AdvReac Type Severity Reaction Status Date / Time No Known Allergies Allergy Verified 07/19/17 18:46 Review of Systems: As Per HPI Past Medical History - Past Medical History Medical history: Reports: hyperlipidemia, hypertension, other Surgical history: Reports: hysterectomy Psychiatric history: Reports: no psych history - Social History Smoking Status: Never smoker Smokeless Tobacco Status: No Alcohol use: Reports: none Drug use: Reports: none Physical Exam CONSTITUTIONAL: Alert and oriented X3 in no apparent distress HEAD: Normocephalic; atraumatic. EYES: Ocular movements grossly intact Oropharynx: pink/moist RESP: NRD without use of accessory musculature, mild wheezing with poor air movement throughout. CARD: Regular rhythm, loud systolic ejection murmur ABD: grossly normal, soft, non-tender, no guarding/distention/rigidity SKIN: normal appearance, no pallor/diaphoresis,mottling,jaundice,cyanosis EXT: DP/Rad pulses 2+ and symmetrical; no lateralizing edema; no other lesions seen PSYCH: appropriate mood/affect - General Limitations: no limitations General appearance: alert, in no apparent distress Course Course Narrative: Patient was seen and examined at bedside with daughter present. Vital signs reviewed and showed oxygen and 90%. Patient was actively complaining of shortness of breath at that time. 2 L of nasal cannula were applied and patient was sating at 99% and appeared comfortable. She was out of breath when she was conversant. Physical examination demonstrates mild wheezing throughout with poor air movement. No other identifiable rhonchi or rales were present. The remainder of the physical examination was unremarkable. We will begin workup for weakness and shortness of breath. 12 lead EKG, CBC, chemistries, coags, lactic acid, BNP, urinalysis, 2 view chest x-ray will be ordered. IV access will be obtained. Patient did receive 1 round of douneb therapy with 125 of Solu-Medrol. Disposition pending. 1740: Chemistries, coags, lactic acid and troponin were unremarkable. Noted changes identified on EKG. CXR showed vascular congestion. 40mg IV Lasix given. UA pending. Patient appears comfortable and is hemodynamically stable on reevaluation. Stool was found to be hemoccult positive. Patient will be typed and screened and was given IV PPI. CBC showed WBC 14 and Hgb 7.6 that has dropped from 8.4 on discharge earlier this month. Given her drop in hemoglobin, Hemoccult positive and anemic symptoms to include shortness of breath and weakness so recommend transfusing 1 unit at this time. This was discussed with patient who understands and agrees to plan. 1840: Patient responded well to IV Lasix and is comfortable on 2L oxygen at this time. UA neg. Spoke with hospitalist, Ratna Castillo who will accept this patient for admission. No further recommendations per the hospital team. This disposition was discussed at length with patient and family who understand and agree. All questions and concerns were addressed. Vital Signs Temperature 97.5 F L 07/19/17 16:24 Pulse Rate 93 07/19/17 16:24 Respiratory Rate 24 07/19/17 16:24 Blood Pressure 145/83 07/19/17 16:24 O2 Sat by Pulse Oximetry 91 07/19/17 16:24 Temperature 97.5 F L 07/19/17 16:24 Pulse Rate 88 07/19/17 17:39 Respiratory Rate 16 07/19/17 17:39 Blood Pressure 142/81 07/19/17 17:39 O2 Sat by Pulse Oximetry 97 07/19/17 17:39 Oxygen Delivery Oxygen Delivery Nasal Cannula Medical Decision Making - Medical Records Medical records reviewed: Yes I reviewed the patient's medical records. - Lab Data Lab results reviewed: Yes I reviewed the patient's lab results. Result diagrams: 07/19/17 16:45 07/19/17 16:45 Lab Results 07/19/17 07/19/17 07/19/17 Range/Units 16:45 16:45 16:45 WBC 14.8 H (4.3-11.1) K/mcL RBC 2.96 L (3.82-4.97) M/mcL Hgb 7.6 L (11.5-15.4) g/dL Hct 26.5 L (35.3-44.9) % MCV 89.5 (83.0-100.0) fL MCH 25.7 L (28.0-33.3) pg MCHC 28.7 L (31.6-35.5) g/dL RDW 18.1 H (11.5-14.5) % Plt Count 426 H (140-400) K/mcL MPV 10.2 (9.4-12.4) fL Immature Gran % 0.4 (0-4) % Seg Neutrophils % 85.6 % Lymphocytes % 8.0 % Monocytes % 4.9 % Eosinophils % 0.7 % Basophils % 0.4 % Neutrophils # 12.7 H (1.6-8.9) K/mcL Lymphocytes # 1.2 (0.6-4.6) K/mcL Monocytes # 0.7 (0.0-1.3) K/mcL Eosinophils # 0.1 (0.0-0.6) K/mcL Basophils # 0.1 (0.0-0.2) K/mcL Platelet Estimate Normal (Normal) Hypochromasia Present A (Not Present) PT (9.4-12.1) Seconds INR APTT (26.0-36.0) Seconds Sodium 142 (136-145) mEq/L Potassium 4.2 (3.5-5.1) mEq/L Chloride 107 (98-107) mEq/L Carbon Dioxide 27 (23-29) mEq/L BUN 33 H (8-23) mg/dL Creatinine 1.00 (0.60-1.20) mg/dL Est GFR ( Amer) > 60 (> 60) Est GFR (Non-Af Amer) 52 L (> 60) BUN/Creatinine Ratio 33 H (6-26) Glucose 183 H (70-105) mg/dL Calculated Osmolality 306 H (280-300) Lactic Acid (0.5-2.2) mmol/L Calcium 8.7 (8.6-10.3) mg/dL Total Bilirubin 0.5 (0.3-1.0) mg/dL AST 18 (13-39) Units/L ALT 15 (7-52) Units/L Alkaline Phosphatase 89 (34-104) Units/L Troponin I < 0.03 (< 0.04) ng/mL B-Natriuretic Peptide 1068 H (Less than 100) pg/mL Serum Total Protein 6.6 (6.4-8.9) g/dL Albumin 3.4 L (3.5-5.7) g/dL Globulin 3.2 (2.4-3.5) g/dL Albumin/Globulin Ratio 1.1 (1.1-2.2) Urine Color (Yellow) Urine Clarity (Clear) Urine pH (5.0-8.0) pH Units Ur Specific [place] (1.010-1.025) Urine Protein (Neg-Trace) mg/dL Urine Glucose (UA) (Normal) mg/dL Urine Ketones (Negative) mg/dL Urine Blood (Negative) Urine Nitrite (Negative) Urine Bilirubin (Negative) Urine Urobilinogen (Normal) mg/dL Ur Leukocyte Esterase (Negative) Urine Microscopic RBC (0-3) per hpf Urine Microscopic WBC (0-3) per hpf Ur Squamous Epith Cells (None-Few) per lpf Urine Bacteria (None-Few) per hpf Hyaline Casts (None-Few) per lpf Ur Culture Indicated? (NO) Blood Type Antibody Screen Crossmatch 07/19/17 07/19/17 07/19/17 Range/Units 16:46 16:47 16:55 WBC (4.3-11.1) K/mcL RBC (3.82-4.97) M/mcL Hgb (11.5-15.4) g/dL Hct (35.3-44.9) % MCV (83.0-100.0) fL MCH (28.0-33.3) pg MCHC (31.6-35.5) g/dL RDW (11.5-14.5) % Plt Count (140-400) K/mcL MPV (9.4-12.4) fL Immature Gran % (0-4) % Seg Neutrophils % % Lymphocytes % % Monocytes % % Eosinophils % % Basophils % % Neutrophils # (1.6-8.9) K/mcL Lymphocytes # (0.6-4.6) K/mcL Monocytes # (0.0-1.3) K/mcL Eosinophils # (0.0-0.6) K/mcL Basophils # (0.0-0.2) K/mcL Platelet Estimate (Normal) Hypochromasia (Not Present) PT 12.2 H (9.4-12.1) Seconds INR 1.1 APTT 30.4 (26.0-36.0) Seconds Sodium (136-145) mEq/L Potassium (3.5-5.1) mEq/L Chloride (98-107) mEq/L Carbon Dioxide (23-29) mEq/L BUN (8-23) mg/dL Creatinine (0.60-1.20) mg/dL Est GFR ( Amer) (> 60) Est GFR (Non-Af Amer) (> 60) BUN/Creatinine Ratio (6-26) Glucose (70-105) mg/dL Calculated Osmolality (280-300) Lactic Acid 1.2 (0.5-2.2) mmol/L Calcium (8.6-10.3) mg/dL Total Bilirubin (0.3-1.0) mg/dL AST (13-39) Units/L ALT (7-52) Units/L Alkaline Phosphatase (34-104) Units/L Troponin I (< 0.04) ng/mL B-Natriuretic Peptide (Less than 100) pg/mL Serum Total Protein (6.4-8.9) g/dL Albumin (3.5-5.7) g/dL Globulin (2.4-3.5) g/dL Albumin/Globulin Ratio (1.1-2.2) Urine Color (Yellow) Urine Clarity (Clear) Urine pH (5.0-8.0) pH Units Ur Specific [place] (1.010-1.025) Urine Protein (Neg-Trace) mg/dL Urine Glucose (UA) (Normal) mg/dL Urine Ketones (Negative) mg/dL Urine Blood (Negative) Urine Nitrite (Negative) Urine Bilirubin (Negative) Urine Urobilinogen (Normal) mg/dL Ur Leukocyte Esterase (Negative) Urine Microscopic RBC (0-3) per hpf Urine Microscopic WBC (0-3) per hpf Ur Squamous Epith Cells (None-Few) per lpf Urine Bacteria (None-Few) per hpf Hyaline Casts (None-Few) per lpf Ur Culture Indicated? (NO) Blood Type A POSITIVE Antibody Screen NEGATIVE Crossmatch See Detail 07/19/17 Range/Units 18:30 WBC (4.3-11.1) K/mcL RBC (3.82-4.97) M/mcL Hgb (11.5-15.4) g/dL Hct (35.3-44.9) % MCV (83.0-100.0) fL MCH (28.0-33.3) pg MCHC (31.6-35.5) g/dL RDW (11.5-14.5) % Plt Count (140-400) K/mcL MPV (9.4-12.4) fL Immature Gran % (0-4) % Seg Neutrophils % % Lymphocytes % % Monocytes % % Eosinophils % % Basophils % % Neutrophils # (1.6-8.9) K/mcL Lymphocytes # (0.6-4.6) K/mcL Monocytes # (0.0-1.3) K/mcL Eosinophils # (0.0-0.6) K/mcL Basophils # (0.0-0.2) K/mcL Platelet Estimate (Normal) Hypochromasia (Not Present) PT (9.4-12.1) Seconds INR APTT (26.0-36.0) Seconds Sodium (136-145) mEq/L Potassium (3.5-5.1) mEq/L Chloride (98-107) mEq/L Carbon Dioxide (23-29) mEq/L BUN (8-23) mg/dL Creatinine (0.60-1.20) mg/dL Est GFR ( Amer) (> 60) Est GFR (Non-Af Amer) (> 60) BUN/Creatinine Ratio (6-26) Glucose (70-105) mg/dL Calculated Osmolality (280-300) Lactic Acid (0.5-2.2) mmol/L Calcium (8.6-10.3) mg/dL Total Bilirubin (0.3-1.0) mg/dL AST (13-39) Units/L ALT (7-52) Units/L Alkaline Phosphatase (34-104) Units/L Troponin I (< 0.04) ng/mL B-Natriuretic Peptide (Less than 100) pg/mL Serum Total Protein (6.4-8.9) g/dL Albumin (3.5-5.7) g/dL Globulin (2.4-3.5) g/dL Albumin/Globulin Ratio (1.1-2.2) Urine Color Yellow (Yellow) Urine Clarity Clear (Clear) Urine pH 6.0 (5.0-8.0) pH Units Ur Specific [place] 1.018 (1.010-1.025) Urine Protein Trace (Neg-Trace) mg/dL Urine Glucose (UA) Normal (Normal) mg/dL Urine Ketones Negative (Negative) mg/dL Urine Blood Trace H (Negative) Urine Nitrite Negative (Negative) Urine Bilirubin Negative (Negative) Urine Urobilinogen Normal (Normal) mg/dL Ur Leukocyte Esterase Negative (Negative) Urine Microscopic RBC 5-15 H (0-3) per hpf Urine Microscopic WBC 0-3 (0-3) per hpf Ur Squamous Epith Cells Moderate H (None-Few) per lpf Urine Bacteria None Seen (None-Few) per hpf Hyaline Casts None Seen (None-Few) per lpf Ur Culture Indicated? NO (NO) Blood Type Antibody Screen Crossmatch - Radiology Data Radiology results reviewed: Yes I reviewed the patient's radiology results. Chest X-Ray 07/19/17 16:45 IMPRESSION: Findings suggest congestive heart failure D/ / Alejandro Shaw MD / Alejandro Shaw MD Interpreting Provider: Alejandro Shaw MD - EKG Data EKG #1 EKG attestation: Yes I reviewed and interpreted this EKG. EKG results narrative: 07/19/2017 1636 - heart rate 92, GA 155, QRS 140, QTC 438. Normal sinus rhythm with several PVCs. There is an old left bundle branch block present area no new ischemic changes. This EKG was compared to previous that was performed on .
[2017-07-19 17:10] LABS: Mean Corpuscular HGB Conc 28.7 g/dL (31.6-35.5)
[2017-07-19 17:12] LABS: Basophils # 0.1 K/mcL (0.0-0.2); Basophils % 0.4 %; Eosinophils # 0.1 K/mcL (0.0-0.6); Eosinophils % 0.7 %; Hematocrit 26.5 % (35.3-44.9); Immature Granulocytes % 0.4 % (0-4); Lymphocytes # 1.2 K/mcL (0.6-4.6); Mean Corpuscular Hemoglobin 25.7 pg (28.0-33.3); Mean Corpuscular Volume 89.5 fL (83.0-100.0); Mean Platelet Volume 10.2 fL (9.4-12.4); Monocytes # 0.7 K/mcL (0.0-1.3); Monocytes % 4.9 %; Neutrophils # 12.7 K/mcL (1.6-8.9); Platelet Count 426 K/mcL (140-400); Red Blood Count 2.96 M/mcL (3.82-4.97); Red Cell Distribution Width 18.1 % (11.5-14.5); Segmented Neutrophils % 85.6 %
[2017-07-19 17:19] LABS: INR 1.1; Prothrombin Time 12.2 Seconds (9.4-12.1)
[2017-07-19 17:22] LABS: Activated Partial Thrombo Time 30.4 Seconds (26.0-36.0)
[2017-07-19 17:24] LABS: Troponin I < 0.03 ng/mL (< 0.04)
--- NOTE | 2017-07-19 17:24 | Emergency Department Note ---
Disposition Clinical Impression: Weakness Disposition: Still a Patient Forms: ED Satisfaction Letter General Adult HPI - General Chief complaint: ED Shortness of Breath/Dyspnea Stated complaint: EMMANUELLE/Weakness Time Seen by Provider: 07/19/17 16:32 Source: patient Limitations: no limitations - History of Present Illness Pain Scale: 6 - Related Data Home Medications Medication Instructions Recorded Confirmed Cyanocobalamin (Vitamin B-12) 1,000 mcg PO DAILY 05/02/16 07/12/17 [Vitamin B12] Labetalol [Trandate] 50 mg PO BID 05/02/16 07/12/17 Losartan Potassium [Cozaar] 50 mg PO DAILY 03/01/17 07/12/17 Omeprazole [PriLOSEC] 20 mg PO DAILY 03/01/17 07/12/17 B Complex with Vitamin C [Antonina-Bee 1 each PO DAILY 06/29/17 07/12/17 with C] Vitamin E Acid Succinate [Vitamin 400 unit PO DAILY 06/29/17 07/12/17 E] Previous Rx's Medication Instructions Recorded Ferrous Sulfate 325 mg PO BIDWM #60 tablet 02/12/16 Simvastatin [Zocor] 10 mg PO HS #90 tablet 05/12/16 Folic Acid 1 mg PO DAILY #30 tablet 08/01/16 Silvasorb 1 appl TP DAILY tube 07/01/17 Allergies Allergy/AdvReac Type Severity Reaction Status Date / Time No Known Allergies Allergy Verified 06/29/17 16:00 Past Medical History - Past Medical History Medical history: Reports: hyperlipidemia, hypertension, other Surgical history: Reports: hysterectomy Psychiatric history: Reports: no psych history - Social History Smoking Status: Never smoker Smokeless Tobacco Status: No Alcohol use: Reports: none Drug use: Reports: none Physical Exam - General Limitations: no limitations General appearance: alert, in no apparent distress Course Vital Signs Temperature 97.5 F L 07/19/17 16:24 Pulse Rate 93 07/19/17 16:24 Respiratory Rate 24 07/19/17 16:24 Blood Pressure 145/83 07/19/17 16:24 O2 Sat by Pulse Oximetry 91 07/19/17 16:24 Temperature 97.5 F L 07/19/17 16:24 Pulse Rate 93 07/19/17 16:24 Respiratory Rate 18 07/19/17 17:12 Blood Pressure 145/83 07/19/17 16:24 O2 Sat by Pulse Oximetry 99 04/25/18 17:12 Oxygen Delivery Oxygen Delivery Room Air Medical Decision Making - Lab Data Lab Results 07/19/17 Range/Units 16:46 Lactic Acid 1.2 (0.5-2.2) mmol/L Attestation Statement - Attestation Attestation: I examined this patient and my medical decision-making was reviewed with the Resident Physician. I agree with the documented findings, disposition and treatment plan as described except to the extent set forth below. 87 year old female prsentes to the ED with copmlaints of EMMANUELLE and weakness and states that she was recently admited to the hospital for anemia and refused to have a colonscopy at that time of her admission adn was tranfused two units at that time. She denies blood in or on her stool at this ttime. Demar states she has generalized weakness. Wew ill do cardiopulmonary workup and leeanne admit to [facility].
[2017-07-19 17:25] LABS: Alanine Aminotransferase 15 Units/L (7-52); Albumin 3.4 g/dL (3.5-5.7); Albumin/Globulin Ratio 1.1 (1.1-2.2); Alkaline Phosphatase 89 Units/L (34-104); Aspartate Amino Transferase 18 Units/L (13-39); BUN/Creatinine Ratio 33 (6-26); Bilirubin,Total 0.5 mg/dL (0.3-1.0); Blood Urea Nitrogen 33 mg/dL (8-23); Calcium 8.7 mg/dL (8.6-10.3); Carbon Dioxide 27 mEq/L (23-29); Chloride 107 mEq/L (98-107); Globulin 3.2 g/dL (2.4-3.5); Glucose 183 mg/dL (70-105); Osmolality,Calculated 306 (280-300); Potassium 4.2 mEq/L (3.5-5.1); Sodium 142 mEq/L (136-145); Total Protein 6.6 g/dL (6.4-8.9); eGFR For African Americans > 60 (> 60); eGFR For Non-African Americans 52 (> 60)
[2017-07-19] MEDS ORDERED: Pantoprazole 80 MG in 0.9 % Sodium Chloride 50 ML IVPB ONE (17:38)
[2017-07-19] MEDS ORDERED: Furosemide 40 MG/4 ML VIAL IVP ONE ×2 (17:48→21:29)
[2017-07-19 17:53] LABS: Hemoglobin 7.6 g/dL (11.5-15.4)
[2017-07-19 18:02] LABS: Hypochromasia Present (Not Present)
[2017-07-19 18:03] LABS: Platelet Estimate Normal (Normal)
[2017-07-19 19:08] LABS: Bilirubin,Urine Negative (Negative); Blood,Urine Trace (Negative); Clarity,Urine Clear (Clear); Color,Urine Yellow (Yellow); Glucose,Urine (UA) Normal (Normal); Ketones,Urine Negative (Negative); Leukocyte Esterase,Urine Negative (Negative); Nitrite,Urine Negative (Negative); Protein,Urine Trace mg/dL (Neg-Trace); Specific Gravity,Urine 1.018 (1.010-1.025); Urobilinogen,Urine Normal (Normal)
[2017-07-19 19:13] LABS: Bacteria,Urine None Seen per hpf (None-Few); Hyaline Casts,Urine None Seen per lpf (None-Few); Squamous Epithelial Cell,Urine Moderate per lpf (None-Few); WBC,Urine 0-3 per hpf (0-3)
[2017-07-19] MEDS ORDERED: 0.9 % Sodium Chloride 250 ML ONE (20:08)
[2017-07-19] MEDS ORDERED: Acetaminophen 325 MG TABLET PO PRN (21:30)
[2017-07-19] MEDS ORDERED: Naloxone 0.4 MG/ML INJ IVP PRN (21:30)
--- NOTE | 2017-07-19 23:27 | Internal Med History&Physical ---
Date of Encounter: 07/19/17 Time of Encounter: 20:00 Internal Medicine - H&P: HPI Chief complaint: Shortness of breath and weak Admitted From: Home Plans for Post Hospital Care: Home History of present illness: Ms. Mederos is a 87 year old female present to ER for shortness of breath and weakness. Past medical history is significant for hypertension, systolic CHF with LVEF 20-30%, severe aortic stenosis. Patient was recently admitted for CHF exacerbation. She has chronic shortness of breath. However, her shortness of breath has worsened today, with facial swelling. Patient denies a fever, cough, chest pain, nausea. Patient has chronic black stool because of iron pill use. Patient looks pale today with sweating. Patient was found elevated BNP and chest x-ray shows pulmonary congestion. She was treated with Lasix IV and symptoms has improved after treatment. Patient was also found low hemoglobin to 7.4 and FOBT positive. Patient was ordered 1 unit PRBC by ER physician. Patient was admitted for CHF exacerbation and suspected GI bleed. I have discussed CODE STATUS with patient, together with patient's niece, patient is AAO 3 and clearly told me she does not want CPR but accept intubation. DNR CCA placed. Past Med Surg Social Fam HX - Past Medical History Medical history: CHF, hyperlipidemia, hypertension, other Psychiatric history: no psych history - Past Surgical History Surgical History: hysterectomy - Social History Smoking Status: Never smoker Smokeless Tobacco Status: No Alcohol use: none Drug use: none - Family History Mother History Unknown: Yes Adopted: [place]: Sherita Bond Age: 88 Living Status: Age at : 88 Cause of : Alzheimers Hx Family Cardiac Disorders: No Hx Family Respiratory Disorders: No Hx Family Cancer: No Hx Family GI Disorders: No Hx Family Endocrine Disorder: No Hx Family Neuromuscular Disorders: No Hx Family Neurologic Disorders: Yes (Dementia) Hx Family HEENT Disorders: No Hx Family Autoimmune Disorders: No Father History Unknown: Yes Adopted: [place]: Kelvin Bond Age: 54 Family Member Ethnicity: Non- Living Status: Age at : 54 Cause of : Cirrhosis secondary to alcoholism Hx Family Cardiac Disorders: No Internal Medicine - H&P: Meds Ferrous Sulfate 325 mg PO BIDWM #60 tablet 02/12/16 [Rx] Cyanocobalamin (Vitamin B-12) [Vitamin B12] 1,000 mcg PO DAILY 05/02/16 [History ] Labetalol [Trandate] 50 mg PO BID 05/02/16 [History] Simvastatin [Zocor] 10 mg PO HS #90 tablet 05/12/16 [Rx] Folic Acid 1 mg PO DAILY #30 tablet 08/01/16 [Rx] Losartan Potassium [Cozaar] 50 mg PO DAILY 03/01/17 [History] Omeprazole [PriLOSEC] 20 mg PO BID 03/01/17 [History] B Complex with Vitamin C [Antonina-Bee with C] 1 each PO DAILY 06/29/17 [History] Vitamin E Acid Succinate [Vitamin E] 400 unit PO DAILY 06/29/17 [History] 3 Allergy/AdvReac Type Severity Reaction Status Date / Time No Known Allergies Allergy Verified 07/19/17 18:46 All Systems PM: A 10-system review of systems was performed and is negative for pertinent findings except as documented above in the HPI. - Constitutional Vitals: Temp Pulse Resp BP Pulse Ox 98.4 F 95 16 141/83 95 07/19/17 20:35 07/19/17 20:35 07/19/17 21:13 07/19/17 21:13 07/19/17 20:30 General appearance: Present: A&O X 3, no acute distress, answers questions appropriately - Head Head exam: Present: atraumatic, normocephalic - Eye Eye exam: Present: PERRL, conjuntiva pink, sclera anicteric Pupils: Present: PERRL - Neck Neck exam general surgery: Present: supple, trachea midline. Absent: lymphadenopathy - Respiratory Respiratory exam: Present: CTAB. Absent: accessory muscle use, rales, rhonchi, wheezes - Cardiovascular Cardiovascular exam: Present: RRR, +S1, +S2, systolic murmur (III/ systolic murmur). Absent: diastolic murmur, gallop, rubs - GI/Abdominal GI/Abdominal exam: Present: normal bowel sounds, soft, no peritoneal signs. Absent: distended, tenderness - Extremities Exam Extremities exam: Present: pedal edema (Bilateral pitting pedal edema), warm, radial pulses palpable and symmetrical. Absent: calf tenderness, cyanotic - Neurological Exam Neurological exam: Present: CN II-XII intact, oriented X3, no focal deficits. Absent: pronater drift, facial droop, speech deficit - Skin Skin exam: Present: dry, intact Internal Med - H&P Results - Labs CBC & Chem 7: 07/19/17 16:45 07/19/17 16:45 - Assessment and plan (1) CHF exacerbation Current Visit: Yes Status: Acute Assessment and plan: Patient has systolic CHF with EF 20-30%. Increased shortness of breath with bilateral leg swelling. Chest x-ray shows pulmonary vascular congestion. Elevated BNP. Suggested CHF exacerbation. - Place patient on Lasix. 40 mg IV was given in ER. Will give another 40 mg after transfusion. Then continue Lasix 20 mg IV daily. - Patient has severe aortic stenosis, hypovolemia and hypotension will be dangerous for patient. Closely monitor vitals every 30 minutes. - Continue beta delvin and ARB - Strict I and O, fluid restriction diet. - We will consult cardiology for further management. Qualifiers: Heart failure type: systolic Qualified Code(s): I50.23 - Acute on chronic systolic (congestive) heart failure (2) Anemia Current Visit: Yes Status: Chronic Assessment and plan: Patient has a chronic anemia, consider oriented deficiency and the patient is following with oncology as outpatient. Patient has been transfused several times previously. Qualifiers: Anemia type: iron deficiency Iron deficiency anemia type: unspecified iron deficiency Qualified Code(s): D50.9 - Iron deficiency anemia, unspecified (3) DVT prophylaxis Current Visit: No Status: Acute Assessment and plan: EPCD, no anticoagulation because of suspected GI bleed and anemia (4) GI bleed Current Visit: Yes Status: Acute Assessment and plan: Patient was found low hemoglobin and a positive FOBT. GI bleed was suspected. Patient has chronic anemia and need several times transfusions. Patient has severe aortic stenosis, which will cause vWF loss and easy to cause GI bleeding. - Place patient on clear liquid diet, IV PPI. - Consult GI in a.m. - 1 unit of PRBC has been ordered in ER Qualifiers: GI bleed type/associated pathology: unspecified gastrointestinal hemorrhage type Qualified Code(s): K92.2 - Gastrointestinal hemorrhage, unspecified - Time Spent With Patient Total time spent is greater than 50% in coordination of care (as documented) at patient's floor/unit and/or counseling patient: 40 minutes Greater than 35 minutes
[2017-07-20 02:14] LABS: Basophils % 0.1 %; Hematocrit 29.9 % (35.3-44.9); Hemoglobin 9.1 g/dL (11.5-15.4); Immature Granulocytes % 0.5 % (0-4); Lymphocytes # 0.3 K/mcL (0.6-4.6); Lymphocytes % 3.9 %; Mean Corpuscular HGB Conc 30.4 g/dL (31.6-35.5); Mean Corpuscular Hemoglobin 26.8 pg (28.0-33.3); Mean Corpuscular Volume 88.2 fL (83.0-100.0); Mean Platelet Volume 10.5 fL (9.4-12.4); Monocytes % 0.3 %; Neutrophils # 7.6 K/mcL (1.6-8.9); Platelet Count 402 K/mcL (140-400); Red Blood Count 3.39 M/mcL (3.82-4.97); Red Cell Distribution Width 17.1 % (11.5-14.5); Segmented Neutrophils % 95.2 %
[2017-07-20 02:32] LABS: BUN/Creatinine Ratio 31 (6-26); Blood Urea Nitrogen 31 mg/dL (8-23); Calcium 8.8 mg/dL (8.6-10.3); Carbon Dioxide 25 mEq/L (23-29); Chloride 104 mEq/L (98-107); Glucose 155 mg/dL (70-105); Magnesium 2.2 mg/dL (1.6-2.6); Osmolality,Calculated 302 (280-300); Potassium 4.1 mEq/L (3.5-5.1); Sodium 141 mEq/L (136-145); eGFR For African Americans > 60 (> 60); eGFR For Non-African Americans 53 (> 60)
[2017-07-20] MEDS: Pantoprazole 40 MG VIAL IVP SCH ×2 (06:08→15:57)
[2017-07-20] MEDS ORDERED: B COMPLEX WITH VITAMIN C PO SCH (09:00)
[2017-07-20] MEDS: Furosemide 40 MG/4 ML VIAL IVP SCH (09:18)
[2017-07-20] MEDS: Folic Acid 1 MG TABLET PO SCH (09:19)
[2017-07-20] MEDS: Cyanocobalamin (B-12) 1,000 MCG TABLET PO SCH (09:20)
[2017-07-20] MEDS: Vitamin B Complex/Vit C/Vit E 1 EACH TABLET PO SCH (09:24)
--- NOTE | 2017-07-20 09:33 | Cardiology Consult Note ---
Date of Encounter: 07/20/17 Time of Encounter: 09:33 Assessment and Plan (1) Severe calcific aortic stenosis Current Visit: Yes Status: Acute Patient has known severe aortic stenosis from echo completed recently. Patient denies wanting any further surgical evaluation for this. Weakness and shortness of breath most likely associated with anemia and aortic stenosis. Patient states she is feeling much better now after transfusion. No further testing needed if patient defers intervention. Discussion w patient/family: The assessment and plan as outlined above was discussed with the patient and/or family members who expressed understanding and agreement. All questions were answered. Thank you for involving us in the care of your patient. Please call with any questions. History of Present Illness Consult date: 07/20/17 Consult reason: Aortic Stenosis Chief complaint: Weakness History of present illness: Ms. Mederos is a 87 year old female with history of chronic iron deficiency anemia and aortic stenosis who was admitted for weakness. Patient states approximately 2 weeks ago she was admitted and transfused. Echo was completed at that time and she was found to have severe aortic stenosis. Patient states she has been feeling more weak since discharge and came in to the ER for further evaluation. Patient was found to be anemic again with positive stool occult. Patient denies wanting any surgical intervention for her aortic stenosis. Patient also deferring further evaluation of her GI bleed at this time. Patient is a DNR CCA. Patient denies any chest pain, pressure or palpitations during this. Past Med Surg Social Fam HX - Past Medical History Attestation: Yes The following information was validated with the patient. Medical history: CHF, hyperlipidemia, hypertension, other Psychiatric history: no psych history - Past Surgical History Surgical History: hysterectomy - Social History Smoking Status: Never smoker Smokeless Tobacco Status: No Alcohol use: none Drug use: none - Family History Mother History Unknown: Yes Adopted: [place]: Sherita Bond Age: 88 Living Status: Age at : 88 Cause of : Alzheimers Hx Family Cardiac Disorders: No Hx Family Respiratory Disorders: No Hx Family Cancer: No Hx Family GI Disorders: No Hx Family Endocrine Disorder: No Hx Family Neuromuscular Disorders: No Hx Family Neurologic Disorders: Yes (Dementia) Hx Family HEENT Disorders: No Hx Family Autoimmune Disorders: No Father History Unknown: Yes Adopted: [place]: Kelvin Bond Age: 54 Family Member Ethnicity: Non- Living Status: Age at : 54 Cause of : Cirrhosis secondary to alcoholism Hx Family Cardiac Disorders: No Medications and Allergies Ferrous Sulfate 325 mg PO BIDWM #60 tablet 02/12/16 [Rx] Cyanocobalamin (Vitamin B-12) [Vitamin B12] 1,000 mcg PO DAILY 05/02/16 [History ] Labetalol [Trandate] 50 mg PO BID 05/02/16 [History] Simvastatin [Zocor] 10 mg PO HS #90 tablet 05/12/16 [Rx] Folic Acid 1 mg PO DAILY #30 tablet 08/01/16 [Rx] Losartan Potassium [Cozaar] 50 mg PO DAILY 03/01/17 [History] Omeprazole [PriLOSEC] 20 mg PO BID 03/01/17 [History] B Complex with Vitamin C [Antonina-Bee with C] 1 each PO DAILY 06/29/17 [History] Vitamin E Acid Succinate [Vitamin E] 400 unit PO DAILY 06/29/17 [History] 3 Allergy/AdvReac Type Severity Reaction Status Date / Time No Known Allergies Allergy Verified 07/19/17 18:46 All Systems Review: The remainder of the systems were reviewed and are negative - Constitutional Constitutional: fatigue, no fever(s) - EENT Eyes: no blurred vision, no loss of vision - Cardiovascular Cardiovascular: as per HPI - Respiratory Respiratory: dyspnea, no cough - Gastrointestinal Gastrointestinal: no abdominal pain, no diarrhea - Genitourinary Genitourinary: no dysuria - Musculoskeletal Musculoskeletal: no abnormal gait - Integumentary Integumentary: no rash - Neurological Neurological: no abnormal speech, no focal weakness Physical Examination Vital Signs, Last 4 Hours Temp Pulse Resp BP Pulse Ox 07/20/17 07:00 97.9 F 87 16 134/79 96 General: Conversant, No Apparent Distress HEENT: Atraumatic, Normocephaly, Mucus Membranes Moist Neck: No JVD Cardiac: Reg Rate and Rhythm, Other (4/6 Systolic murmur noted over the second right intercostal space) Lungs: Normal Breath Sounds, No Wheeze, Rales, Rhonchi Neuro: Alert and responsive, No focal deficits noted Abdomen: Soft, Non-Tender Skin: No rashes noted on visualized skin Musculoskeletal: No Chest Wall Tenderness Extremities: No Clubbing, No Cyanosis, No Edema, Normal Pulses Results 07/20/17 01:31 07/20/17 01:31 Lab Results 07/20/17 07/20/17 01:31 01:31 WBC 8.0 Hgb 9.1 L D Hct 29.9 L Plt Count 402 H Sodium 141 Potassium 4.1 Chloride 104 Carbon Dioxide 25 BUN 31 H Creatinine 0.99 Glucose 155 H Calcium 8.8 Magnesium 2.2 Consult Discharge Plan - Plan Referrals: Alley Barr, [employer] [Primary Care Provider] -
--- NOTE | 2017-07-20 13:25 | Internal Med Progress Note ---
Date of Encounter: 07/20/17 Time of Encounter: 13:00 - Assessment and plan (1) Anemia Current Visit: Yes Status: Chronic Assessment and plan: Anemia r/o GI bleed.F/U GI recs Patient has been transfused several times previously. Qualifiers: Anemia type: iron deficiency Iron deficiency anemia type: unspecified iron deficiency Qualified Code(s): D50.9 - Iron deficiency anemia, unspecified (2) DVT prophylaxis Current Visit: No Status: Acute Assessment and plan: EPCD, no anticoagulation because of suspected GI bleed and anemia (3) CHF exacerbation Current Visit: Yes Status: Acute Assessment and plan: Patient has systolic CHF with EF 20-30%. Increased shortness of breath with bilateral leg swelling. Chest x-ray shows pulmonary vascular congestion. Elevated BNP. Suggested CHF exacerbation. - Place patient on Lasix. 40 mg IV was given in ER. Will give another 40 mg after transfusion. Then continue Lasix 20 mg IV daily. - Continue beta delvin and ARB - Strict I and O, fluid restriction diet. - Pt feeling better s/p transfusion and refusing any further intervention by cardiology Qualifiers: Heart failure type: systolic Qualified Code(s): I50.23 - Acute on chronic systolic (congestive) heart failure (4) GI bleed Current Visit: Yes Status: Acute Assessment and plan: Patient was found low hemoglobin and a positive FOBT. GI bleed was suspected. Patient has chronic anemia and need several times transfusions. Patient has severe aortic stenosis, which will cause vWF loss and easy to cause GI bleeding. - Place patient on clear liquid diet, IV PPI. - GI consulted, appreciate recs - 1 unit of PRBC has been ordered in ER Qualifiers: GI bleed type/associated pathology: unspecified gastrointestinal hemorrhage type Qualified Code(s): K92.2 - Gastrointestinal hemorrhage, unspecified (5) Severe calcific aortic stenosis Current Visit: No Status: Chronic Assessment and plan: Patient refusing any cardiology intervention - Time Spent With Patient Total time spent is greater than 50% in coordination of care (as documented) at patient's floor/unit and/or counseling patient: - Subjective Interval history: No acute events overnight - Constitutional Vitals: Temp Pulse Resp BP Pulse Ox 97.9 F 87 16 134/79 96 07/20/17 07:00 07/20/17 07:00 07/20/17 07:00 07/20/17 07:00 07/20/17 07:00 General appearance: Present: A&O X 3, no acute distress, answers questions appropriately Internal Medicine: Result - Labs CBC & Chem 7: 07/20/17 01:31 07/20/17 01:31 Labs: Short CBC 07/20/17 Range/Units 01:31 WBC 8.0 (4.3-11.1) K/mcL Hgb 9.1 L D (11.5-15.4) g/dL Hct 29.9 L (35.3-44.9) % Plt Count 402 H (140-400) K/mcL Neutrophils # 7.6 (1.6-8.9) K/mcL BMP 07/20/17 01:31 Sodium 141 Potassium 4.1 Chloride 104 Carbon Dioxide 25 BUN 31 H Creatinine 0.99 Glucose 155 H Calcium 8.8 - ABG Interpretation ABG results: PT/INR, D-dimer PT 12.2 Seconds (9.4-12.1) H 07/19/17 16:47 - VTE Documentation of Mechanical Device: Intermittent pneumatic compression device Consult Discharge Plan - Plan Referrals: Alley Barr, [employer] [Primary Care Provider] -
--- NOTE | 2017-07-20 14:34 | Gastroenterology Consult Note ---
<Lizet Naranjo M - Last Filed: 07/20/17 14:30> Date of Encounter: 07/20/17 Time of Encounter: 11:14 - Assessment and plan (1) Anemia Current Visit: Yes Status: Chronic Assessment and plan: Pt presents with anemia. She was recently seen with the same. She denies bloody or tarry stools. She does have black stools from daily iron supplements. She was advised EGD and colonoscopy, however she is a high risk candidate due to her severe aortic stenosis and EF 20-30%. Long discussion was held with the patient and her daughter and she is refusing scopes at this time. Will monitor H &H, transfuse as needed, replace iron. If any active bleeding the patient will reconsider endoscopic procedures. Qualifiers: Anemia type: iron deficiency Iron deficiency anemia type: unspecified iron deficiency Qualified Code(s): D50.9 - Iron deficiency anemia, unspecified (2) Iron deficiency Current Visit: No Status: Chronic - Time Spent With Patient Total time spent is greater than 50% in coordination of care (as documented) at patient's floor/unit and/or counseling patient: GI History of Present Illness - Data of Consult Patient: known to practice within the last 3 years Consult date: 07/20/17 Requesting Physician: Renetta Castillo CNP - Consult Narrative Reason for consult: anemia History of present illness: Ms Mederos is an 87 year old female with a PMHX of hyperlipidemia and hypertension , systolic CHF with LVEF 20-30%, and severe aortic stenosis.. Patient was recently admitted for CHF exacerbation. She presents with increased shortness of breath and facial swelling. Patient denies a fever, cough, chest pain, nausea. Patient was found elevated BNP and chest x-ray shows pulmonary congestion. She was treated with Lasix IV and symptoms has improved after treatment. Patient was also found low hemoglobin to 7.4 and FOBT positive. She was transfused 1 unit PRBCs and states she feels better today. She denies nausea, vomiting, GERD, or abdominal pain. She states she is on iron supplements so her stools are always dark. She denies any bright red rectal bleeding. Dr Lake saw the patient earlier this month for GI bleed and was planning for outpatient EGD and colonoscopy. She denies NSAIDS or blood thinners. Colonoscopy: 06/01/11 Dr. Salgado: Tortuous colon, sigmoid diverticuli EGD: 02/14/12 Dr. Salgado: Hiatal hernia, gastric ulcer, chronic gastritis NSAIDS/anticoagulants: denies Past Med Surg Social Fam HX - Past Medical History Medical history: CHF, hyperlipidemia, hypertension, other Psychiatric history: no psych history - Past Surgical History Surgical History: hysterectomy - Social History Smoking Status: Never smoker Smokeless Tobacco Status: No Alcohol use: none Drug use: none - Family History Mother History Unknown: Yes Adopted: [place]: Sherita Bond Age: 88 Living Status: Age at : 86 Cause of : Alzheimers Hx Family Cardiac Disorders: No Hx Family Respiratory Disorders: No Hx Family Cancer: No Hx Family GI Disorders: No Hx Family Endocrine Disorder: No Hx Family Neuromuscular Disorders: No Hx Family Neurologic Disorders: Yes (Dementia) Hx Family HEENT Disorders: No Hx Family Autoimmune Disorders: No Father History Unknown: Yes Adopted: [place]: Kelvin Bond Age: 54 Family Member Ethnicity: Non- Living Status: Age at : 54 Cause of : Cirrhosis secondary to alcoholism Hx Family Cardiac Disorders: No Review of Systems: GI: as per [place] GENERAL: denies fever, or chills EYES: denies yellow discoloration ENT: denies pain with swallowing or difficulty swallowing CARDIO: denies chest pain, palpitations RESP: Shortness of breath with exertion : denies change in color of urine NEURO: weakness HEME: Denies any bruising MS: denies joint pain, joint swelling or back pain. DERM: denies rash or itching PSYCH: Denies history of anxiety or depression - Constitutional Vitals: Temp Pulse Resp BP Pulse Ox 97.9 F 87 16 134/79 96 07/20/17 07:00 07/20/17 07:00 07/20/17 07:00 07/20/17 07:00 07/20/17 07:00 Exam: CONSTITUTIONAL:~alert, no acute distress.~HEAD:~normocephalic.~EYES:~no jaundice.~NECK:~no obvious swelling.~HEART:~regular rate and rhythm, no murmurs. ~LUNGS:~bilateral fair air entry.~ABDOMEN:~non distended, soft, non tender, no masses palpable, no organomegaly.~RECTAL EXAM:~Deferred.~EXTREMITIES:~no clubbing, cyanosis, trace BLE edema.~SKIN:~pallor noted, no stigmata of chronic liver disease.~NEUROLOGIC:~no obvious focal defect.~~~~ Results - Labs CBC & Chem 7: 07/20/17 01:31 07/20/17 01:31 Labs: Last Result Calcium 8.8 mg/dL (8.6-10.3) 07/20/17 01:31 Troponin I < 0.03 ng/mL (< 0.04) 07/19/17 16:45 Entire Visit Hgb 9.1 g/dL (11.5-15.4) L D 07/20/17 01:31 Hct 29.9 % (35.3-44.9) L 07/20/17 01:31 PT 12.2 Seconds (9.4-12.1) H 07/19/17 16:47 Total Bilirubin 0.5 mg/dL (0.3-1.0) 07/19/17 16:45 AST 18 Units/L (13-39) 07/19/17 16:45 ALT 15 Units/L (7-52) 07/19/17 16:45 - ABG ABG results: PT/INR, D-dimer PT 12.2 Seconds (9.4-12.1) H 07/19/17 16:47 Consult Discharge Plan - Plan Referrals: Alley Barr CNP [Primary Care Provider] - <Manny Londono - Last Filed: 07/20/17 18:52> Date of Encounter: 07/20/17 Time of Encounter: 18:00 - Time Spent With Patient Total time spent is greater than 50% in coordination of care (as documented) at patient's floor/unit and/or counseling patient: GI History of Present Illness - Data of Consult Requesting Physician: Renetta Castillo CNP - Consult Narrative History of present illness: Ms. Mederos is a 87 year old female - Constitutional Vitals: Temp Pulse Resp BP Pulse Ox 98 F 84 16 138/73 95 07/20/17 11:33 07/20/17 11:33 07/20/17 11:33 07/20/17 11:33 07/20/17 11:33 Results - Labs CBC & Chem 7: 07/20/17 01:31 07/20/17 01:31 Labs: Last Result Calcium 8.8 mg/dL (8.6-10.3) 07/20/17 01:31 Troponin I < 0.03 ng/mL (< 0.04) 07/19/17 16:45 Entire Visit Hgb 9.1 g/dL (11.5-15.4) L D 07/20/17 01:31 Hct 29.9 % (35.3-44.9) L 07/20/17 01:31 PT 12.2 Seconds (9.4-12.1) H 07/19/17 16:47 Total Bilirubin 0.5 mg/dL (0.3-1.0) 07/19/17 16:45 AST 18 Units/L (13-39) 07/19/17 16:45 ALT 15 Units/L (7-52) 07/19/17 16:45 - ABG ABG results: PT/INR, D-dimer PT 12.2 Seconds (9.4-12.1) H 07/19/17 16:47 - Attending Attestation I have personally performed a face to face evaluation on this patient. I have reviewed and agree with the care plan. History and Exam by me shows: Patient seen denies any abdominal pain. Patient with the recurrent anemia. At this point patient do not want to have any scopes done especially due to underlying cardiac issues/including severe aortic stenosis and the risks that are involved
[2017-07-21] MEDS: Pantoprazole 40 MG VIAL IVP SCH (05:59)
--- NOTE | 2017-07-21 09:05 | Discharge Summary ---
- NOTES TO OUTPATIENT PROVIDER Notes to Outpatient Provider: Monitor CBC Date of Encounter: 07/21/17 Time of Encounter: 08:45 - Discharge Diagnosis (1) Anemia Priority: Primary Status: Chronic Assessment and Plan: Anemia likely 2/2 to GI bleed . Recieved 1 unit of pRBC and one iron infusion per GI recs. Refuses any endoscopic intervention. Can follow up outpatient with GI Qualifiers: Anemia type: iron deficiency Iron deficiency anemia type: unspecified iron deficiency Qualified Code(s): D50.9 - Iron deficiency anemia, unspecified (2) CHF exacerbation Priority: Secondary Status: Acute Assessment and Plan: Patient has systolic CHF with EF 20-30%. Resolved with IV lasix. Will discharge home on po lasix Qualifiers: Heart failure type: systolic Qualified Code(s): I50.23 - Acute on chronic systolic (congestive) heart failure (3) DVT prophylaxis Priority: Secondary Status: Acute Assessment and Plan: EPCD, no anticoagulation because of suspected GI bleed and anemia (4) GI bleed Priority: Secondary Status: Acute Assessment and Plan: See plan for anemia. d/C home on protonix. Has received PRBC and iron infusion. refuses endoscopy Qualifiers: GI bleed type/associated pathology: unspecified gastrointestinal hemorrhage type Qualified Code(s): K92.2 - Gastrointestinal hemorrhage, unspecified (5) Severe calcific aortic stenosis Priority: Secondary Status: Chronic Assessment and Plan: Donnie responisble for her SOB in addition to CHF. Patient refusing any cardiology intervention Hospital course: Ms. Mederos is a 87 year old female - Time Spent with Patient Total time spent providing and/or coordinating discharge services: - Discharge Medications Prescriptions: Furosemide [Lasix] 40 mg PO DAILY #30 tab Home Medications: Ferrous Sulfate 325 mg PO BIDWM #60 tablet 02/12/16 [Rx] Cyanocobalamin (Vitamin B-12) [Vitamin B12] 1,000 mcg PO DAILY 05/02/16 [History ] Labetalol [Trandate] 50 mg PO BID 05/02/16 [History] Simvastatin [Zocor] 10 mg PO HS #90 tablet 05/12/16 [Rx] Folic Acid 1 mg PO DAILY #30 tablet 08/01/16 [Rx] Losartan Potassium [Cozaar] 50 mg PO DAILY 03/01/17 [History] Omeprazole [PriLOSEC] 20 mg PO BID 03/01/17 [History] B Complex with Vitamin C [Antonina-Bee with C] 1 each PO DAILY 06/29/17 [History] Vitamin E Acid Succinate [Vitamin E] 400 unit PO DAILY 06/29/17 [History] Furosemide [Lasix] 40 mg PO DAILY #30 tab 07/21/17 [Rx] Allergies/Adverse Reactions: 3 Allergy/AdvReac Type Severity Reaction Status Date / Time No Known Allergies Allergy Verified 07/19/17 18:46 Date of admission: 07/19/17 19:08 Primary care physician: Alley Barr CNP Consults: 07/19/17 21:34 Consult to Gastroenterology [CONS] Routine Consulting Provider: [facility] [place] Reason for Consult: GI bleed Call Completed: No 07/19/17 21:43 Consult to Cardiology [CONS] Routine Comment: Consulting Provider: [facility] Reason for Consult: CHF exacerbation, severe Aortic stenosis Call Completed: No 07/20/17 13:45 Consult to Surgery [CONS] Routine Consulting Provider: Uvaldo Castro Reason for Consult: cyst Call Completed: Yes - Constitutional Vitals: Temp Pulse Resp BP Pulse Ox 98.2 F 105 17 126/67 93 07/21/17 07:04 07/21/17 07:04 07/21/17 07:04 07/21/17 07:04 07/21/17 07:04 General appearance: Present: A&O X 3, no acute distress, answers questions appropriately - Head Head exam: Present: atraumatic, normocephalic - Eye Eye exam: Present: PERRL, conjuntiva pink, sclera anicteric Pupils: Present: PERRL - Neck Neck exam general surgery: Present: supple, trachea midline. Absent: lymphadenopathy - Respiratory Respiratory exam: Present: CTAB. Absent: accessory muscle use, rales, rhonchi, wheezes - Cardiovascular Cardiovascular exam: Present: RRR, +S1, +S2. Absent: diastolic murmur, gallop, rubs, systolic murmur - GI/Abdominal GI/Abdominal exam: Present: normal bowel sounds, soft, no peritoneal signs. Absent: distended, tenderness - Extremities Exam Extremities exam: Present: warm, radial pulses palpable and symmetrical. Absent : calf tenderness, cyanotic, pedal edema - Neurological Exam Neurological exam: Present: CN II-XII intact, oriented X3, no focal deficits. Absent: pronater drift, facial droop, speech deficit - Skin Skin exam: Present: dry, intact - Patient Status Disposition: Home, Self-Care Condition: Good - Discharge Instructions Follow Up With: Alley Barr, BEE TENDER [Primary Care Provider] - - VTE Documentation of Mechanical Device: Intermittent pneumatic compression device
[2017-07-21] MEDS: Folic Acid 1 MG TABLET PO SCH (09:36)
[2017-07-21] MEDS: Cyanocobalamin (B-12) 1,000 MCG TABLET PO SCH (09:36)
[2017-07-21] MEDS: Furosemide 40 MG/4 ML VIAL IVP SCH (09:36)
[2017-07-21] MEDS: Vitamin B Complex/Vit C/Vit E 1 EACH TABLET PO SCH (09:36)
[2017-07-21 11:24] VITALS: BP 123/67
--- NOTE | 2017-07-21 14:51 | Physician Discharge Referral ---
- Diagnosis (1) Anemia Status: Chronic (2) CHF exacerbation Status: Acute (3) DVT prophylaxis Status: Acute (4) GI bleed Status: Acute (5) Severe calcific aortic stenosis Status: Chronic - Respiratory Orders Smoking Cessation: Smoking cessation has been advised. For more information, call the [place] Tobacco Quit Line at 1-666-OGYK-NOW. - Diet/Nutrition Diet/Nutrition Orders: Regular, Cardiac - Activity Activity Orders: Ambulate - Services Needed Following services are medically necessary services: Nursing, Home Health Aide, Physical Therapy - Transfer Medications Prescriptions: Furosemide [Lasix] 40 mg PO DAILY #30 tab Home Medications: Ferrous Sulfate 325 mg PO BIDWM #60 tablet 02/12/16 [Rx] Cyanocobalamin (Vitamin B-12) [Vitamin B12] 1,000 mcg PO DAILY 05/02/16 [History ] Labetalol [Trandate] 50 mg PO BID 05/02/16 [History] Simvastatin [Zocor] 10 mg PO HS #90 tablet 05/12/16 [Rx] Folic Acid 1 mg PO DAILY #30 tablet 08/01/16 [Rx] Losartan Potassium [Cozaar] 50 mg PO DAILY 03/01/17 [History] Omeprazole [PriLOSEC] 20 mg PO BID 03/01/17 [History] B Complex with Vitamin C [Antonina-Bee with C] 1 each PO DAILY 06/29/17 [History] Vitamin E Acid Succinate [Vitamin E] 400 unit PO DAILY 06/29/17 [History] Furosemide [Lasix] 40 mg PO DAILY #30 tab 07/21/17 [Rx] Allergies/Adverse Reactions: 3 Allergy/AdvReac Type Severity Reaction Status Date / Time No Known Allergies Allergy Verified 07/19/17 18:46 Certification: Further, I certify that my clinical findings support that this patient is homebound (i.e. absences from home require considerable and taxing effort and are for medical reasons or yazidi services or infrequently or short duration when for other reasons) because: Homebound Reason: Patient requires assistance of a person or device to safely leave home Attestation: My signature below is to certify that this patient is under my care and that I, or nurse practitioner, or a physician's retail store assistant working with me, has a face-to -face encounter with this patient.
--- NOTE | 2017-07-22 17:11 | Electrocardiograph Report ---
[address] [address] Test Date: 2017-07-19 Pat Name: Betina Mederos Department: 102 Room: [facility] Gender: F Power Originator: Mellissa : 1930 Requested By: Harinder Cervantes Order Number: [id number] Reading MD: Clarissa Greenberg Measurements Intervals [place] Rate: 92 P: 21 AR: 155 QRS: -4 QRSD: 140 T: 140 QT: 388 QTc: 438 Interpretive Statements SINUS RHYTHM WITH OCCASIONAL SUPRAVENTRICULAR PREMATURE COMPLEXES POSSIBLE LEFT ATRIAL ENLARGEMENT [-0.1mV P WAVE IN V1/V2] LEFT BUNDLE BRANCH BLOCK [120+ ms QRS DURATION, 80+ ms Q/S IN V1/V2, 85+ ms R IN I/aVL/V5/V6] Electronically Signed On 07-22-2017 17:09:41 EDT by Clarissa Greenberg
== END 2017-07-21 16:54 | disposition home or self-care (01) ==
LOC: EMEROO 16:23 → INTOOBSV 19:08 → 3ANU 19:08 → 3NENU 07-20 01:13
PROVIDERS: ADMIT Registered Nurse; ATTEND Registered Nurse